=== PATIENT | female | born 1995 | race Caucasian/White ===

== ENCOUNTER 2018-09-23 17:49 | Outpatient (CLI) | payer MEDICAID ==
[~2018-09-23 17:49] MED LIST: PREN1TAB71 PO
--- NOTE | 2018-09-23 17:49 | NUR ---
PANCHITO CARMICHAEL presented to unit from HOME, accompanied by Significant Other, with c/o ELEVATED BP. PANCHITO CARMICHAEL weighed, gowned, voided, and to bed. EFHM and TOCO applied, VS taken. PANCHITO CARMICHAEL oriented to bed controls, call light, TV, heat, and A/C controls.
[2018-09-23 18:00] VITALS: BP 130/96
--- NOTE | 2018-09-23 18:10 | NUR ---
Dr. Spicer notified of patients arrival and complaints. New orders received.
[2018-09-23 18:20] VITALS: BP 124/72
[2018-09-23 18:30] VITALS: BP 130/96
[2018-09-23 18:33] VITALS: BP 131/75
[2018-09-23 18:48] VITALS: BP 126/73
[2018-09-23 19:03] VITALS: BP 132/78
--- NOTE | 2018-09-23 19:10 | NUR ---
Reactive FHR tracing with moderate variability noted. FHR baseline 145 bpm with accels up to 160-170's. No decels noted. Occasional uterine ctx noted with irritability present.
--- NOTE | 2018-09-23 19:11 | NUR ---
SVE unchanged from previous exam.
[2018-09-23] MEDS ORDERED: FLU QUADRIvalent (5+ YOA) 2018-2019 (AFLURIA) 0.5 ML IM ONE (19:15)
--- NOTE | 2018-09-23 19:16 | NUR ---
Dr. Spicer updated on patient's status. New orders received.
--- NOTE | 2018-09-23 19:20 | NUR ---
Report to Jt Coronado RN.
--- NOTE | 2018-09-23 19:24 | NUR ---
yumi and jorge marcus.
--- NOTE | 2018-09-23 19:32 | NUR ---
Discharge papers explained to pt. Pt denies questions. verbalizes understanding. papers signed, copy given. Pt left to dress.
--- NOTE | 2018-09-23 19:39 | NUR ---
Pt ambulated off unit accompanied by so. no s/s distress noted.
--- NOTE | 2018-09-24 13:32 | Physician Query-Final Dx ---
VILMA BENDER 09/24/18 1332: Clinic Account Progress/Dx Physician Query: Please give diagnosis Date of Service Sep 23, 2018 at 17:49 LAKHWINDER LACEY DO 09/26/18 1515: Clinic Account Progress/Dx DIAGNOSIS: Diagnosis Intrauterine at 38 weeks 2. Elevated Blood Pressure VILMA BENDER Sep 24, 2018 13:32 LAKHWINDER LACEY DO Sep 26, 2018 15:15
== END 2018-09-23 19:39 | disposition home or self-care (01) ==
LOC: WSo 17:49 → LDRP 17:49 → WSo 19:39
PROVIDERS: ATTEND Obstetrics & Gynecology
DX: R03.0 Elevated blood-pressure reading, without diagnosis of hypertension (principal); Z3A.38 38 weeks gestation of pregnancy
CPT/HCPCS: 99213

== ENCOUNTER 2018-09-30 04:47 | Inpatient (IN) | payer MEDICAID ==
[2018-09-30] VITALS (45 sets, daily range): BP systolic 107–145; BP diastolic 53–96
[~2018-09-30] VITALS: Ht 157.5 cm; Wt 101.2 kg
--- NOTE | 2018-09-30 04:50 | NUR ---
PANCHITO CARMICHAEL presented to unit via AMBULATORY from ED, accompanied by S/O , FOR INDUCTION. PANCHITO CARMICHAEL weighed, gowned, voided, and to bed. EFHM and TOCO applied, VS taken. PANCHITO CARMICHAEL oriented to bed controls, call light, TV, heat, and A/C controls. ASSESSMENTS TO FOLLOW PER JUSTICE BEE.
[2018-09-30] MEDS ORDERED: AMPICILLIN FOR IV USE 2,000 MG in WATER (STERILE) FOR INJECTION 14.8 ML IV SCH (05:14)
[2018-09-30] MEDS ORDERED: OXYTOCIN/NORMAL SALINE 500 ML IV SCH ×2 (05:14→14:37)
[2018-09-30] MEDS ORDERED: MINERAL OIL CONCENTRATE 99.9% 15 ML UDC TOP PRN (05:15)
[2018-09-30] MEDS: LACTATED RINGERS 1,000 ML IV SCH ×2 (05:30→16:22)
[2018-09-30 05:34] LABS: BASOPHILS % (AUTO) 0 % (0-10); EOSINOPHILS # (AUTO) 0.1 10^3/uL (0.0-0.3); EOSINOPHILS % (AUTO) 1 % (0-10); HEMATOCRIT 34 % (35-52); HEMOGLOBIN 10.9 G/DL (11.5-16.0); LYMPHOCYTES # (AUTO) 2.6 X 10^3 (1.0-4.0); LYMPHOCYTES % (AUTO) 26 % (12-44); MEAN CORPUSCULAR HEMOGLOBIN 25 PG (25-34); MEAN CORPUSCULAR HGB CONC 32 G/DL (32-36); MEAN CORPUSCULAR VOLUME 80 FL (80-99); MONOCYTES # (AUTO) 0.6 X 10^3 (0.0-1.0); MONOCYTES % (AUTO) 6 % (0-12); NEUTROPHILS # (AUTO) 6.4 X 10^3 (1.8-7.8); NEUTROPHILS % (AUTO) 66 % (42-75); PLATELET COUNT 111 10^3/uL (130-400); WHITE BLOOD COUNT 9.7 10^3/uL (4.3-11.0)
[2018-09-30] MEDS ORDERED: SUFENTA 0.6MCG/ML BUPIVA 0.125 100 ML ONE (05:56)
[2018-09-30] MEDS ORDERED: CATHETER FLUSH 10 ML SYR IV SCH (06:00)
[2018-09-30] MEDS ORDERED: fentaNYL INJECTION 100 MCG/2 ML AMP ONE (06:02)
[2018-09-30] MEDS ORDERED: BUPIVACAINE 0.25% 30 ML (SENSORCAINE) VIAL ONE (06:02)
[2018-09-30] MEDS ORDERED: LACTATED RINGERS 1,000 ML IV ONE ×2 (06:28)
[2018-09-30] MEDS ORDERED: EPIDURAL (SUFENTA 0.6MCG/ML BUPIVA 0.125%) 100 ML BAG EPI PRN (06:30)
[2018-09-30] MEDS ORDERED: NALOXONE 0.4 MG/ML 1 ML (NARCAN) VIAL IV PRN (06:30)
--- OUTSIDE RECORDS SUMMARY | 2018-09-30 07:24 | XMS REPORT | Continuity of Care Document ---
Author Author [facility] Organization [facility] Address Unknown Phone Unavailable Allergies Active Description Code Type Severity Reaction Onset Reported/Identified Relationship to Patient Clinical Status Yes No Known Drug Allergies [id number] Drug Allergy Unknown N/A 09/23/2018 Medications There is no data. Problems Date Dx Coded Attending Type Code Diagnosis Diagnosed By 12/23/2013 LILIANA PEPE, WILBERT Benitez Ot 648.93 OTH CURR COND-ANTEPARTUM 12/23/2013 LILIANA PEPE, WILBERT Benitez Ot 786.50 CHEST PAIN NOS 09/23/2018 SEALS DO, LAKHWINDER E Ot R03.0 ELEVATED BLOOD-PRESSURE READING, W/O MISAEL 09/23/2018 SEALS DO, LAKHWINDER E Ot Z3A.38 38 WEEKS GESTATION OF 09/29/2018 SEALS DO, LAKHWINDER E Ot R03.0 ELEVATED BLOOD-PRESSURE READING, W/O MISAEL 09/29/2018 SEALS DO, LAKHWINDER E Ot Z3A.38 38 WEEKS GESTATION OF Procedures There is no data. Results Test Result Range Complete blood count (CBC) with automated white blood cell (WBC) differential - 09/30/18 05:20 Blood leukocytes automated count (number/volume) 9.7 10*3/uL 4.3-11.0 Blood erythrocytes automated count (number/volume) 4.30 10*6/uL 4.35-5.85 Venous blood hemoglobin measurement (mass/volume) 10.9 g/dL 11.5-16.0 Blood hematocrit (volume fraction) 34 % 35-52 Automated erythrocyte mean corpuscular volume 80 [foz_us] 80-99 Automated erythrocyte mean corpuscular hemoglobin (mass per erythrocyte) 25 pg 25-34 Automated erythrocyte mean corpuscular hemoglobin concentration measurement ( mass/volume) 32 g/dL 32-36 Automated erythrocyte distribution width ratio 15.0 % 10.0-14.5 Automated blood platelet count (count/volume) 111 10*3/uL 130-400 Automated blood platelet mean volume measurement TNP 7.4 -10.4 Automated blood neutrophils/100 leukocytes 66 % 42-75 Automated blood lymphocytes/100 leukocytes 26 % 12-44 Blood monocytes/100 leukocytes 6 % 0-12 Automated blood eosinophils/100 leukocytes 1 % 0-10 Automated blood basophils/100 leukocytes 0 % 0-10 Blood neutrophils automated count (number/volume) 6.4 10*3 1.8-7.8 Blood lymphocytes automated count (number/volume) 2.6 10*3 1.0-4.0 Blood monocytes automated count (number/volume) 0.6 10*3 0.0-1.0 Automated eosinophil count 0.1 10*3/uL 0.0-0.3 Automated blood basophil count (count/volume) 0.0 10*3/uL 0.0-0.1 Blood type T Indirect antibody screen panel - 09/30/18 05:20 ABO+Rh group AP NRG Transfusion band number [id number] NRG Blood group antibody screen NEGATIVE NRG Encounters ACCT No. Visit Date/Time Discharge Status Pt. Type Provider Facility Loc./Unit Complaint [id number] 09/23/2018 17:49:00 09/23/2018 19:39:00 DIS Outpatient LAKHWINDER LACEY DO [facility] WSo ELEVATED BP [id number] 12/23/2013 15:27:00 12/23/2013 17:25:00 DIS Outpatient LILIANA PEPE[facility]ST PAIN [id number] 09/30/2018 04:47:00 ACT Inpatient LAKHWINDER LACEY DO [facility] LDRP INDUCTION
[2018-09-30] MEDS ORDERED: FLU QUADRIvalent (5+ YOA) 2018-2019 (AFLURIA) 0.5 ML IM ONE (07:30)
[2018-09-30] MEDS: FAMOTIDINE 20 MG (PEPCID) TABLET PO PRN ×2 (08:05→08:59)
[2018-09-30] MEDS: ONDANSETRON 4 MG/2 ML (SDV) Z0FRAN IV PRN ×2 (08:09→11:53)
[2018-09-30] MEDS ORDERED: AMPICILLIN FOR IV USE 1,000 MG in WATER (STERILE) FOR INJECTION 7.4 ML IV SCH (09:15)
[2018-09-30] MEDS ORDERED: LIDOCAINE 1% INJ 20 ML 20 ML VIAL ONE (11:35)
--- NOTE | 2018-09-30 13:39 | NUR ---
Spontaneous vaginal delivery of placenta with cord. pitocin increased to 999ml/hr as ordered fundal massage by this rn. 1349 vital signs obtained. ffu/0 with lt rubra noted, no clots expressed. epidural infusion stopped and epidural out with tip intact. pt assisted out of foot pedals and to sf position. plan of care reviewed with pt. 1404 vital signs stable ffu/0 with lt rubra noted, no clots expressed.
--- NOTE | 2018-09-30 13:48 | History & Physical-OB/GYN ---
History of Present Illness History of Present Illness Reason for visit/HPI Pitocin Induction of Labor at 39 weeks Date of Admission Sep 30, 2018 at 04:47 Date Seen by a Provider: Sep 30, 2018 Time Seen by a Provider: 07:40 I consulted on this patient on 09/30/18 13:43 Attending Physician David Spicer DO Admitting Physician No,Local Physician Consult Allergies and Home Medications Allergies Coded Allergies: No Known Drug Allergies (Unverified , 09/23/18) Home Medications Vit/Fe Fumarate/Fa 1 Each Tablet, 1 EACH PO DAILY, (Reported) Patient Home Medication List Home Medication List Reviewed: Yes Past Heqntkx-Schhvx-Hfxrrz Hx Patient Social History Alcohol Use: Denies Use Recreational Drug Use: No Physical Abuse Screen: No Sexual Abuse: No Recent Hopitalizations: No Immunizations Up To Date Pediatric: Yes Seasonal Allergies Seasonal Allergies: No Respiratory No Cardiovascular No Neurological No Reproductive System Expected Date of Delivery: Oct 07, 2018 Genitourinary No Gastrointestinal No Musculoskeletal No Endocrine History of Endocrine Disorders: Yes HEENT History of HEENT Disorders: No Cancer No Psychosocial History of Psychiatric Problem: No Integumentary History of Skin or Integumenta: No Blood Transfusions History of Blood Disorders: No Adverse Reaction to a Blood Tr: No Review of Systems Constitutional: no symptoms reported Physical Exam Physical Exam Vital Signs Vital Signs Date Time Temp Pulse Resp B/P (MAP) Pulse Ox O2 Delivery O2 Flow Rate FiO2 09/30/18 13:00 09/30/18 12:55 98 18 123/60 (81) 09/30/18 12:45 09/30/18 12:40 108 18 122/72 (89) 09/30/18 12:30 09/30/18 12:25 120 18 117/63 (81) 09/30/18 12:15 09/30/18 12:10 114 18 120/66 (84) 09/30/18 12:00 09/30/18 11:55 93 18 126/69 (88) 09/30/18 11:45 09/30/18 11:40 103 18 113/56 (75) 09/30/18 11:30 09/30/18 11:25 92 18 124/83 (97) 09/30/18 11:20 97.9 09/30/18 11:15 09/30/18 11:10 84 18 109/59 (76) 09/30/18 11:00 09/30/18 10:55 81 18 107/64 (78) 09/30/18 10:45 09/30/18 10:40 83 18 109/71 (84) 09/30/18 10:30 09/30/18 10:25 76 18 122/64 (83) 09/30/18 10:15 09/30/18 10:10 83 18 136/63 (87) 09/30/18 10:00 09/30/18 09:55 93 18 130/79 (96) 09/30/18 09:45 09/30/18 09:40 93 18 130/79 (96) 09/30/18 09:30 09/30/18 09:25 97.8 98 18 119/74 (89) 09/30/18 09:15 09/30/18 09:05 102 18 114/66 (82) 09/30/18 09:00 09/30/18 08:55 96 18 112/71 (85) 09/30/18 08:45 09/30/18 08:40 84 18 107/53 (71) 99 09/30/18 08:30 114 18 100 09/30/18 08:25 88 18 115/63 (80) 99 09/30/18 08:15 114 18 100 09/30/18 08:00 90 18 97 09/30/18 07:55 100 18 126/89 (101) 99 09/30/18 07:45 88 18 132/79 (96) 99 09/30/18 07:35 93 18 135/96 (109) 98 09/30/18 07:30 97.6 91 18 117/78 (91) 99 09/30/18 07:25 94 18 125/78 (94) 98 09/30/18 07:20 90 18 124/71 (88) 99 09/30/18 07:15 125 18 139/78 (98) 100 09/30/18 07:05 112 18 127/74 (91) 98 09/30/18 06:58 109 18 124/69 (87) 100 09/30/18 06:52 105 18 130/75 (93) 98 09/30/18 06:48 120 18 110/70 (83) 99 09/30/18 06:45 109 18 124/69 (87) 100 09/30/18 06:38 114 18 98 09/30/18 06:34 114 18 129/75 (93) 99 09/30/18 06:30 117 18 121/75 (90) 100 09/30/18 06:15 115 18 135/82 (99) 100 09/30/18 06:00 98.2 110 18 140/82 (101) 97 Capillary Refill : Labs Laboratory Tests 09/30/18 05:20: White Blood Count 9.7, Red Blood Count 4.30L, Hemoglobin 10.9L, Hematocrit 34L, Mean Corpuscular Volume 80, Mean Corpuscular Hemoglobin 25, Mean Corpuscular Hemoglobin Concent 32, Red Cell Distribution Width 15.0H, Platelet Count 111L, Mean Platelet Volume , Neutrophils (%) (Auto) 66, Lymphocytes (%) (Auto) 26, Monocytes (%) (Auto) 6, Eosinophils (%) (Auto) 1, Basophils (%) (Auto) 0, Neutrophils # (Auto) 6.4, Lymphocytes # (Auto) 2.6, Monocytes # (Auto) 0.6, Eosinophils # (Auto) 0.1, Basophils # (Auto) 0.0 Cervix OS: open ( 3 cm) Assessment/Plan Assessment and Plan Assessment: Intrauterine at 39 weeks Plan: Pitocin Induction of Labor. AROM. Epidural. I expect a vaginal delivery Admission Diagnosis Intrauterine Admission Status: Inpatient Order (span 2 midnights) Reason for Inpatient Admission: with forthcoming delivery Clinical Quality Measures DVT/VTE Risk/Contraindication: Risk Factor Score Per Nursin RFS Level Per Nursing on Admit: 1=Low/No VTE PPX DAVID SPICER DO Sep 30, 2018 13:48
--- NOTE | 2018-09-30 13:51 | OB Labor & Delivery Record ---
L&D History Date of Service Date of Service: Sep 30, 2018 History Expected Date of Delivery: Oct 07, 2018 Gestational Age in Weeks: 39 Hx : 2 Hx Para: 1 L&D Stage1 Monitors and Tracing Monitor Mode: Internal Heart Rate: 135 Station: -1 Vital Signs VS - Last 72 Hours, by Label 09/30/18 09/30/18 09/30/18 09/30/18 06:00 06:15 06:30 06:34 Temp 98.2 Pulse 110 115 117 114 Resp 18 18 18 18 B/P (MAP) 140/82 (101) 135/82 (99) 121/75 (90) 129/75 (93) Pulse Ox 97 100 100 99 09/30/18 09/30/18 09/30/18 09/30/18 06:38 06:45 06:48 06:52 Pulse 114 109 120 105 Resp 18 18 18 18 B/P (MAP) 124/69 (87) 110/70 (83) 130/75 (93) Pulse Ox 98 100 99 98 09/30/18 09/30/18 09/30/18 09/30/18 06:58 07:05 07:15 07:20 Pulse 109 112 125 90 Resp 18 18 18 18 B/P (MAP) 124/69 (87) 127/74 (91) 139/78 (98) 124/71 (88) Pulse Ox 100 98 100 99 09/30/18 09/30/18 09/30/18 09/30/18 07:25 07:30 07:35 07:45 Temp 97.6 Pulse 94 91 93 88 Resp 18 18 18 18 B/P (MAP) 125/78 (94) 117/78 (91) 135/96 (109) 132/79 (96) Pulse Ox 98 99 98 99 09/30/18 09/30/18 09/30/18 09/30/18 07:55 08:00 08:15 08:25 Pulse 100 90 114 88 Resp 18 18 18 18 B/P (MAP) 126/89 (101) 115/63 (80) Pulse Ox 99 97 100 99 09/30/18 09/30/18 09/30/18 09/30/18 08:30 08:40 08:45 08:55 Pulse 114 84 96 Resp 18 18 18 B/P (MAP) 107/53 (71) 112/71 (85) Pulse Ox 100 99 09/30/18 09/30/18 09/30/18 09/30/18 09:00 09:05 09:15 09:25 Temp 97.8 Pulse 102 98 Resp 18 18 B/P (MAP) 114/66 (82) 119/74 (89) 09/30/18 09/30/18 09/30/18 09/30/18 09:30 09:40 09:45 09:55 Pulse 93 93 Resp 18 18 B/P (MAP) 130/79 (96) 130/79 (96) 09/30/18 09/30/18 09/30/18 09/30/18 10:00 10:10 10:15 10:25 Pulse 83 76 Resp 18 18 B/P (MAP) 136/63 (87) 122/64 (83) 09/30/18 09/30/18 09/30/18 09/30/18 10:30 10:40 10:45 10:55 Pulse 83 81 Resp 18 18 B/P (MAP) 109/71 (84) 107/64 (78) 09/30/18 09/30/18 09/30/18 09/30/18 11:00 11:10 11:15 11:20 Temp 97.9 Pulse 84 Resp 18 B/P (MAP) 109/59 (76) 09/30/18 09/30/18 09/30/18 09/30/18 11:25 11:30 11:40 11:45 Pulse 92 103 Resp 18 18 B/P (MAP) 124/83 (97) 113/56 (75) 09/30/18 09/30/18 09/30/18 09/30/18 11:55 12:00 12:10 12:15 Pulse 93 114 Resp 18 18 B/P (MAP) 126/69 (88) 120/66 (84) 09/30/18 09/30/18 09/30/18 09/30/18 12:25 12:30 12:40 12:45 Pulse 120 108 Resp 18 18 B/P (MAP) 117/63 (81) 122/72 (89) 09/30/18 09/30/18 12:55 13:00 Pulse 98 Resp 18 B/P (MAP) 123/60 (81) Rupture of Membranes Amniotic Membrane Rupture Time: 712 Induction/Anesthesia Epidural Cath Placement - Time: 06 L&D Stage2 Monitors and Tracing Monitor Mode: Internal Heart Rate: 135 Position: Right Occiput Anterior Presentation: Vertex Cord Descript/Complications Cord Vessel Description: 3 Vessels Delivery Type Infant Delivery Method: Spontaneous Vaginal Episiotomy/Perineal Laceration Laceraction(s)/Extensions: No L&D Stage3 Pictocin Pitocin Administration mu/min: 20 Pitocin ml/hr: 20 Pitocin Administration Comment: 1008 pitocin increased Delivery Summary Summary Estimated blood loss (mL): 200 ml Attending at delivery: Dr. David Spicer Condition of Delivery Examined: Uterus Explored Post Hemorrhage: DAVID Mckeon DO Sep 30, 2018 13:50
--- NOTE | 2018-09-30 14:19 | NUR ---
ffu/0 with light rubra noted, no clots expressed. vss. 1434 ffu/0 with lt rubra noted, small 2cm clot expressed. vss.
[2018-09-30] MEDS ORDERED: WITCH HAZEL(TUCKS) 40 EA JAR TOP PRN (14:45)
[2018-09-30] MEDS ORDERED: BENZOCAINE/MENTHOL (DERMOPLAST) 56 ML CAN TP PRN (14:45)
[2018-09-30] MEDS ORDERED: MEASLES,MUMPS,RUBELLA 1 EA INJ SQ ONE (14:45)
[2018-09-30] MEDS ORDERED: TETANUS,DIPTH,PERTUSS P/F (BOOSTRIX) 0.5 ML VIAL IM ONE (14:45)
--- NOTE | 2018-09-30 15:03 | NUR ---
pt sitting up eating dinner.
[2018-09-30] MEDS: IBUPROFEN 600 MG (MOTRIN) TAB PO SCH ×2 (15:08→21:02)
--- NOTE | 2018-09-30 15:30 | NUR ---
ffu/0 with lt-mod rubra noted, no clots expressed. pericare and pad changed. Underwear on. Gown on.
--- NOTE | 2018-09-30 15:40 | NUR ---
Pt assisted to wheelchair and transferred to room 309. Oriented to room, call light and surroundings. Info packet discussed. family at bedside. fresh ice water to bedside table.
--- NOTE | 2018-09-30 17:31 | NUR ---
Assisted up to bathroom. pt reports "dizzy." ambulates with steady gait to toilet. lt-mod rubra noted on pad, +void, pericare explained and done. new pad and underwear on. Assisted back to bed and ambulates with steady gait. pt to breastfeed infant. handed to pt from crib. pt denies further needs.
--- NOTE | 2018-09-30 20:15 | NUR ---
Water supplied upon request further needs denied.
--- NOTE | 2018-09-30 21:00 | NUR ---
mob upset rn not available for bath, rn voiced triage and pt care priority and productivity, mob voiced understanding, bath to be done in am when mob awake to be present. rn voiced understanding.
[2018-09-30] MEDS: DOCUSATE SODIUM 100 MG (COLACE) CAP PO SCH (21:02)
--- NOTE | 2018-09-30 23:05 | NUR ---
meds admin see emar. Pt denies further needs, will cont to monitor.
[2018-09-30] MEDS: oxyCODONE/APAP 5/325MG (PERCOCET 5) TABLET PO PRN (23:14)
--- NOTE | 2018-10-01 00:25 | NUR ---
ice diaper supplied upon request r/t vag soreness. Denies further needs at this time.
[2018-10-01 03:21] VITALS: BP 112/74
[2018-10-01] MEDS: IBUPROFEN 600 MG (MOTRIN) TAB PO SCH ×2 (03:21→10:10)
--- NOTE | 2018-10-01 03:21 | NUR ---
pt and s/o sleeping in bed with , moved to crib per rn, sleep protocols reviewed, understanding voiced per mob. IV removed, vss see int.
[2018-10-01 06:01] LABS: BASOPHILS % (AUTO) 0 % (0-10); EOSINOPHILS # (AUTO) 0.2 10^3/uL (0.0-0.3); EOSINOPHILS % (AUTO) 2 % (0-10); HEMATOCRIT 31 % (35-52); HEMOGLOBIN 9.8 G/DL (11.5-16.0); LYMPHOCYTES # (AUTO) 2.4 X 10^3 (1.0-4.0); LYMPHOCYTES % (AUTO) 27 % (12-44); MEAN CORPUSCULAR HEMOGLOBIN 25 PG (25-34); MEAN CORPUSCULAR HGB CONC 32 G/DL (32-36); MEAN CORPUSCULAR VOLUME 80 FL (80-99); MONOCYTES # (AUTO) 0.6 X 10^3 (0.0-1.0); MONOCYTES % (AUTO) 7 % (0-12); NEUTROPHILS # (AUTO) 5.8 X 10^3 (1.8-7.8); NEUTROPHILS % (AUTO) 64 % (42-75); PLATELET COUNT 94 10^3/uL (130-400); RED CELL DISTRIBUTION WIDTH 15.2 % (10.0-14.5); WHITE BLOOD COUNT 9.1 10^3/uL (4.3-11.0)
--- NOTE | 2018-10-01 07:28 | Discharge Inst-Women's Service ---
Discharge Inst-Women's Serv Depart Medication/Instructions New, Converted or Re-Newed RX: RX Given to Pt/Family Instructions Pelvic rest x 6 weeks. No heavy lifting, less than 20 lbs. No strenuous activities. Tub soaks 2-3 x daily. Return to office in 6 weeks Final Diagnosis Intrauterine at 39 weeks--delivered Consults/Follow Up Additional Follow Up: Yes ( check in 6 weeks) Activity Activity: Activity as Tolerated Driving Instructions: No Driving for 1 Week NO SMOKING: NO SMOKING Nothing Inside Vagina: No Douching, No [place], No Tampons Diet Discharge Diet: No Restrictions Symptoms to Report to : Bleeding Excessive, Pain Increased, Fever Over 101 Degrees F, Vaginal Bleeding Increase Skin/Wound Care Bathing Instructions: LAKHWINDER Miranda DO Oct 01, 2018 07:28
[2018-10-01] MEDS ORDERED: IBUP-844 PO (07:32)
[2018-10-01] MEDS ORDERED: DOCU100C37 PO (07:32)
[2018-10-01] MEDS ORDERED: OXYC1TAB87 PO (07:32)
--- NOTE | 2018-10-01 07:39 | Discharge Summary ---
Discharge Summary Intrauterine at 39 weeks--delivered Ms. Hernandez was admitted for Pitocin Induction of Labor. Her membranes were artificially ruptured. She was given an Epidural for antepartum anesthesia. She progressed to complete and delivered a healthy viable female infant without complications. Her vital signs remained stable throughout her hospitalization. On day #1, she was discharged to home with instructions, prescriptions and a follow up appointment. Clinical Quality Measures Admission Status Admission Dx Intrauterine DVT/VTE Risk/Contraindication: Risk Factor Score Per Nursin RFS Level Per Nursing on Admit: 1=Low/No VTE LAKHWINDER GOMEZ DO Oct 01, 2018 07:39
[2018-10-01] MEDS: DOCUSATE SODIUM 100 MG (COLACE) CAP PO SCH (08:13)
[2018-10-01] MEDS: FAMOTIDINE 20 MG (PEPCID) TABLET PO PRN (08:13)
[2018-10-01] MEDS: oxyCODONE/APAP 5/325MG (PERCOCET 5) TABLET PO PRN ×2 (08:14→13:33)
[2018-10-01 08:18] VITALS: BP 122/78
--- NOTE | 2018-10-01 09:09 | NUR ---
Patient refused TDAP immunization. Last given 12/02/2010. Pt also refused Flu vaccine.
--- NOTE | 2018-10-01 10:18 | Anesthesia-Regional Post-Op ---
Regional Patient Condition Mental Status: Alert, Oriented x3 Circulation: Same as Pre-Op Headache: Absent Sensation: Full Recovery Motor Block: Absent Post Op Complications Complications None Follow Up Care/Instructions Patient Instructions None needed. Anesthesia/Patient Condition Patient is doing well, no complaints, stable vital signs, no apparent adverse anesthesia problems. No complications reported per nursing. FABIAN LARSEN CRNA Oct 01, 2018 10:18
--- NOTE | 2018-10-01 11:15 | NUR ---
Discharge instructions and home care instructions given to pt verbally along with handouts. Pt verbalizes understanding. Pt verified by signing instruction signature page.
[2018-10-01 12:31] VITALS: BP 123/80
--- NOTE | 2018-10-01 15:40 | NUR ---
Discharge pt. Pt ambulated to personal vehicle accompanied via this nurse and . Babe in child safety car seat and clicked in. All personal items with patient. Pt has Rx and follow-up appointments with Dr Spicer in 6 weeks. No s/s of distress. No concerns voiced by pt at this time.
== END 2018-10-01 15:40 | disposition home or self-care (01) | DRG 807 ==
LOC: LDRP 04:47
PROVIDERS: ADMIT Obstetrics & Gynecology; ATTEND Obstetrics & Gynecology
PROC: 10E0XZZ Delivery of Products of Conception, External Approach (ICD-10-PCS; principal; 2018-09-30)
PROC: 3E033VJ Introduction of Other Hormone into Peripheral Vein, Percutaneous Approach (ICD-10-PCS; 2018-09-30)
DX: O99.283 Endocrine, nutritional and metabolic diseases complicating pregnancy, third trimester (principal); E03.9 Hypothyroidism, unspecified; O99.613 Diseases of the digestive system complicating pregnancy, third trimester; K21.9 Gastro-esophageal reflux disease without esophagitis; Z3A.39 39 weeks gestation of pregnancy; Z37.0 Single live birth
CPT/HCPCS: 36415; 85025; 86850; 86900; 86901

== ENCOUNTER 2018-11-17 05:30 | Emergency (ER) | payer MEDICAID ==
[~2018-11-17] VITALS: Ht 157.5 cm; Wt 90.3 kg
[~2018-11-17 05:30] MED LIST changes: +DOCU100C37 PO; +IBUP-844 PO; +OXYC1TAB87 PO
--- OUTSIDE RECORDS SUMMARY | 2018-11-17 05:37 | XMS REPORT ---
Author Author LAKHWINDER LACEY 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 Name Role Phone EDEPTHI LAKHWINDER Unavailable PROBLEMS Unknown Problems ALLERGIES Substance Reaction Event Type Date Status Benadryl Facial Swelling Drug Allergy Sep, Active ENCOUNTERS Encounter Location Date Diagnosis [address] [address] Oct, [address] [address] Sep, Morbid obesity E66.01 ; Encounter for supervision of other normal in third trimester Z34.83 and Other specified related conditions, third trimester O26.[address] [address] Aug, [address] [address] Aug, Other specified related conditions, third trimester O26.[address] [address] Aug, Other specified related conditions, third trimester O26.893 ; Pelvic and perineal pain R10.2 ; Other specified bacterial agents as the cause of diseases classified elsewhere B96.89 ; Acute vaginitis N76.0 and BMI 40.0-44.9, adult Z68.[address] [address] Jul, [facility] [address] [facility] [id number] [address] Apr, [facility] [address] [facility] [id number], [place] [address] Apr, IMMUNIZATIONS No Known Immunizations SOCIAL HISTORY Never Assessed REASON FOR VISIT OB f/u PLAN OF CARE Activity Details Follow Up 1 Week Reason:Return Obstetrical Visit VITAL SIGNS Height 5'2 in 2018-09-23 Weight 219 lbs 2018-09-23 Temperature 98.2 degrees Fahrenheit 2018-09-23 Heart Rate 120 bpm 2018-09-23 BMI 42.77 kg/m2 2018-09-23 Blood pressure systolic 146 mmHg 2018-09-23 Blood pressure diastolic 101 mmHg 2018-09-23 MEDICATIONS Medication Instructions Dosage Frequency Start Date End Date Duration Status Tylenol with Codeine #3 300-30 MG Orally every 6 hrs 1 tablet as needed 6h Aug, 7 days Unknown Flagyl 500 MG Orally 2 times a day 1 tablet 12h 12 Aug, 2018 7 days Unknown Zofran 4 MG Orally Twice a day 2 tablets 12h 30 day(s) Unknown Cyclobenzaprine HCl 10 MG Orally Three times a day 1 tablet as needed 8h Aug, 10 days Unknown HydrOXYzine HCl 25 MG/ML Intramuscular every 6 hrs 2 ml as needed 6h 30 day(s) Unknown Yhuyjoasav-NTKR-Vlgcimpn 50-325-40 MG Orally every 4 hrs 1 capsule as needed 4h Unknown RESULTS No Results PROCEDURES Procedure Date Ordered Result Body Site URINE-NO MICRO September 23, 2018 [facility] September 23, 2018 INSTRUCTIONS MEDICATIONS ADMINISTERED No Known Medications MEDICAL (GENERAL) HISTORY Type Description Date Medical History Hypothyroidism Medical History obesity
--- OUTSIDE RECORDS SUMMARY | 2018-11-17 05:37 | XMS REPORT | Continuity of Care Document ---
Author Organization Unknown Address Unknown Allergies Active Description Code Type Severity Reaction Onset Reported/Identified Relationship to Patient Clinical Status Yes No Known Drug Allergies [id number] Drug Allergy Unknown N/A 09/23/2018 Medications There is no data. Problems Date Dx Coded Attending Type Code Diagnosis Diagnosed By 12/23/2013 LILIANA PEPE, WILBERT Benitez Ot 648.93 OTH CURR COND-ANTEPARTUM 12/23/2013 WILBERT FORD MD Ot 786.50 CHEST PAIN NOS 09/23/2018 SEALS DO, LAKHWINDER E Ot R03.0 ELEVATED BLOOD-PRESSURE READING, W/O MISAEL 09/23/2018 SEALS DO, LAKHWINDER E Ot Z3A.38 38 WEEKS GESTATION OF 09/29/2018 SEALS DO, LAKHWINDER E Ot R03.0 ELEVATED BLOOD-PRESSURE READING, W/O MISAEL 09/29/2018 SEALS DO, LAKHWINDER E Ot Z3A.38 38 WEEKS GESTATION OF 10/01/2018 SEALS DO, LAKHWINDER E Ot E03.9 HYPOTHYROIDISM, UNSPECIFIED 10/01/2018 SEALS DO, LAKHWINDER E Ot K21.9 GASTRO-ESOPHAGEAL REFLUX DISEASE WITHOUT 10/01/2018 SEALS DO, LAKHWINDER E Ot O99.283 ENDO, NUTRITIONAL AND METAB DISEASES COM 10/01/2018 SEALS DO, LAKHWINDER E Ot O99.613 DISEASES OF THE DGSTV SYS COMP 10/01/2018 SEALS DO, LAKHWINDER E Ot Z37.0 SINGLE LIVE 10/01/2018 SEALS DO, LAKHWINDER E Ot Z3A.39 39 WEEKS GESTATION OF Procedures Code Description Performed By Performed On [id number] DELIVERY OF PRODUCTS OF CONCEPTION, EXTE 09/30/2018 [id number] INTRODUCTION OF OTH HORMONE INTO PERIPH 09/30/2018 Results Test Result Range Complete blood count [...] panel - 09/30/18 05:20 ABO+Rh group AP NR Transfusion band number [id number] [facility] Blood group antibody screen NEGATIVE [facility] Complete blood count (CBC) with automated white blood cell (WBC) differential - 10/01/18 05:30 Blood leukocytes automated count (number/volume) 9.1 10*3/uL 4.3-11.0 Blood erythrocytes automated count (number/volume) 3.85 10*6/uL 4.35-5.85 Venous blood hemoglobin measurement (mass/volume) 9.8 g/dL 11.5-16.0 Blood hematocrit (volume fraction) 31 % 35-52 Automated erythrocyte mean corpuscular volume 80 [foz_us] 80-99 Automated erythrocyte mean corpuscular hemoglobin (mass per erythrocyte) 25 pg 25-34 Automated erythrocyte mean corpuscular hemoglobin concentration measurement ( mass/volume) 32 g/dL 32-36 Automated erythrocyte distribution width ratio 15.2 % 10.0-14.5 Automated blood platelet count (count/volume) 94 10*3/uL 130-400 Automated blood platelet mean volume measurement TNP 7.4 -10.4 Automated blood neutrophils/100 leukocytes 64 % 42-75 Automated blood lymphocytes/100 leukocytes 27 % 12-44 Blood monocytes/100 leukocytes 7 % 0-12 Automated blood eosinophils/100 leukocytes 2 % 0-10 Automated blood basophils/100 leukocytes 0 % 0-10 Blood neutrophils automated count (number/volume) 5.8 10*3 1.8-7.8 Blood lymphocytes automated count (number/volume) 2.4 10*3 1.0-4.0 Blood monocytes automated count (number/volume) 0.6 10*3 0.0-1.0 Automated eosinophil count 0.2 10*3/uL 0.0-0.3 Automated blood basophil count (count/volume) 0.0 10*3/uL 0.0-0.1 Encounters ACCT No. Visit Date/Time Discharge Status Pt. Type Provider Facility Loc./Unit Complaint [id number] 09/30/2018 04:47:00 10/01/2018 15:40:00 DIS Outpatient LAKHWINDER LACEY DO [facility] LDRP INDUCTION [id number] 09/23/2018 17:49:00 09/23/2018 19:39:00 DIS Outpatient LAKHWINDER LACEY DO [facility] WSo ELEVATED BP [id number] 12/23/2013 15:27:00 12/23/2013 17:25:00 DIS Outpatient LILIANA PEPE, WILBERT Benitez Via [facility] WSo ABD PAIN; CHEST PAIN
[2018-11-17] MEDS ORDERED: LORazepam INJ 2 MG/ML (ATIVAN) VIAL IM STA (06:09)
--- NOTE | 2018-11-17 06:22 | ED Psychosocial ---
General Chief Complaint: Psych/Social Disorder Stated Complaint: PANIC ATTACK Nursing Triage Note: pt [address] Sipcer saturday with no complaints, pt states 2 days ago she started having panic attacks, wants them to stop, took tylenol pm 1 hr ago then tried to emesis because she is breast feeding and doesnt want medication to go to the baby. pt states she is not sleeping well. Source: patient, RN notes reviewed Exam Limitations: no limitations History of Present Illness Date Seen by Provider: Nov 17, 2018 Time Seen by Provider: 06:00 Initial Comments Patient presents c/c /o worsening anxiety since Saturday. [address] Spicer on Saturday and was doing fine @ that time. States she isn't sleeping well. Is breast feeding. Took a Tylenol PM approximately a hour [employer], but made herself throw it up secondary to not wanting the baby to get it thru her breast milk. States she just wants it to stop. Denies anything similar to this c/ her first . Timing/Duration: getting worse, other (since Saturday) Severity: severe Associated Symptoms: anxiety, insomnia Allergies and Home Medications Allergies Coded Allergies: No Known Drug Allergies (Unverified , 09/23/18) Home Medications Docusate Sodium 100 Mg Capsule, 100 MG PO BID Prescribed by: LAKHWINDER SPICER on 10/01/18 0732 Ibuprofen 600 Mg Tablet, 800 MG PO Q6H PRN for PAIN-MILD Prescribed by: LAKHWINDER SPICER on 10/01/18 0732 Oxycodone HCl/Acetaminophen 1 Each Tablet, 1 TAB PO Q6H PRN for PAIN-MODERATE Prescribed by: LAKHWINDER SPICER on 10/01/18 0732 Vit/Fe Fumarate/Fa 1 Each Tablet, 1 EACH PO DAILY, (Reported) Patient Home Medication List Home Medication List Reviewed: Yes Review of Systems Constitutional: see HPI Psychiatric/Neurological: See HPI, Anxiety (panic) All Other Systems Reviewed Negative Unless Noted: Yes (Negative excepted noted.) Past Pjmdbhk-Gwvjmb-Ftfgce Hx Patient Social History Alcohol Use: Denies Use Recreational Drug Use: No Smoking Status: Never a Smoker Recent Foreign Travel: No Contact w/Someone Who Travel: No Recent Infectious Disease Expo: No Recent Hopitalizations: No Physical Abuse: No Sexual Abuse: No Mistreated: No Fear: No Immunizations Up To Date PED Vaccines UTD: Yes Seasonal Allergies Seasonal Allergies: No Past Medical History Respiratory: No Cardiac: No Neurological: No Genitourinary: No Gastrointestinal: No Musculoskeletal: No Endocrine: Yes HEENT: No Cancer: No Psychosocial: No Integumentary: No Blood Disorders: No Adverse Reaction/Blood Tranf: No Physical Exam Vital Signs - First Documented 11/17/18 05:46 Temp 97.8 Pulse 92 Resp 18 B/P (MAP) 162/89 (113) Pulse Ox 98 O2 Delivery Simple Mask Capillary Refill : Less Than 3 Seconds Height, Weight, BMI Height: 5'2.00" Weight: 199lbs. 0.0oz. 90.813199ls; 40.8 BMI Method:Stated General Appearance: WD/WN, moderate distress Respiratory: no respiratory distress Cardiovascular: regular rate, rhythm Neurologic/Psychiatric: no motor/sensory deficits, alert, oriented x 3, other ( extremely anxious; exhibiting signs of a panic attack) Appearance/Memory: neat Behavior/Eye Contact: cooperative, increased rate of speech (slightly) Thoughts/Hallucinations: no apparent hallucination Skin: warm/dry Progress/Results/Core Measures Results/Orders My Orders Orders - KENDRICK LATIF DO Lorazepam Injection (Ativan Injection) (11/17/18 06:09) Vital Signs/I&O 11/17/18 11/17/18 05:46 06:27 Temp 97.8 Pulse 92 98 Resp 18 16 B/P (MAP) 162/89 (113) 142/86 (104) Pulse Ox 98 98 O2 Delivery Simple Mask Blood Pressure Mean: 113 Progress Progress Note : Progress Note Will give the patient 1 mg of Ativan IM. She is aware she will need to pump and dump today. Needs to check c/ Dr. Spicer this AM for further recommendations regarding her symptoms. Departure Impression Primary Impression: Panic anxiety syndrome Disposition: 01 HOME, SELF-CARE Condition: Stable Departure-Patient Inst. Decision time for Depature: 06:22 Referrals: LAKHWINDER SPICER DO (PCP/Family) Primary Care Physician Patient Instructions: Panic Disorder (DC), Anxiety, Adult (DC) Add. Discharge Instructions: All discharge instructions reviewed with patient and/or family. Voiced understanding. CALL DR. SPICER THIS AM, 11/17, FOR HIS RECOMMENDATIONS REGARDING FUTURE TREATMENT. KENDRICK LATIF DO Nov 17, 2018 06:22
[2018-11-17 06:27] VITALS: BP 142/86
== END 2018-11-17 06:27 | disposition home or self-care (01) ==
LOC: EDUNIT# 05:30 → ER FS 05:33
DX: F41.0 Panic disorder [episodic paroxysmal anxiety] (principal)
CPT/HCPCS: 96372; 99284

== ENCOUNTER 2019-07-26 05:27 | Emergency (ER) | payer BC, MEDICAID ==
[~2019-07-26] VITALS: Ht 157 cm; Wt 95.7 kg
[2019-07-26] MEDS ORDERED: AMOX500C2 PO (05:50)
[2019-07-26] MEDS ORDERED: HYDR-3820 PO (05:50)
[2019-07-26] MEDS ORDERED: AMOXICILLIN 500 MG (POLYMOX) CAP PO STA (05:51)
--- NOTE | 2019-07-26 05:51 | ED EENT ---
History of Present Illness General Chief Complaint: Dental Problems/Pain Stated Complaint: DENTAL PAIN Nursing Triage Note: PT COMPLAINING OF LOWER RIGHT DENTAL PAIN SINCE 1900 LAST NIGHT Source: patient Exam Limitations: no limitations History of Present Illness Date Seen by Provider: Jul 26, 2019 Time Seen by Provider: 05:47 Initial Comments Patient broke her right lower second molar 2 days ago. It started hurting bad yesterday. She has tried clove oil Orajel and Motrin 800 mg without relief. No fevers or chills. Allergies and Home Medications Allergies Coded Allergies: No Known Drug Allergies (Unverified , 09/23/18) Home Medications Amoxicillin 500 Mg Capsule, 500 MG PO TID Prescribed by: JESSICA HILL on 07/26/19 0550 Docusate Sodium 100 Mg Capsule, 100 MG PO BID Prescribed by: LAKHWINDER LACEY on 10/01/18 0732 Hydrocodone/Acetaminophen 1 Each Tablet, 1 EACH PO Q6H PRN for PAIN-MODERATE Prescribed by: JESSICA HILL on 07/26/19 0550 Ibuprofen 600 Mg Tablet, 800 MG PO Q6H PRN for PAIN-MILD Prescribed by: LAKHWINDER LACEY on 10/01/18 0732 Oxycodone HCl/Acetaminophen 1 Each Tablet, 1 TAB PO Q6H PRN for PAIN-MODERATE Prescribed by: LAKHWINDER LACEY on 10/01/18 0732 Vit/Fe Fumarate/Fa 1 Each Tablet, 1 EACH PO DAILY, (Reported) Patient Home Medication List Home Medication List Reviewed: Yes Review of Systems Review of Systems Constitutional: no symptoms reported Eyes: No Symptoms Reported Mouth: see HPI Respiratory: no symptoms reported Cardiovascular: no symptoms reported Skin: no symptoms reported Neurological: No Symptoms Reported All Other Systems Reviewed Negative Unless Noted: Yes Past Ozzmxrr-Jcgguj-Sramjm Hx Patient Social History Alcohol Use: Denies Use Recreational Drug Use: No Smoking Status: Current Everyday Smoker Recent Foreign Travel: No Contact w/Someone Who Travel: No Recent Infectious Disease Expo: No Recent Hopitalizations: No Physical Abuse: No Sexual Abuse: No Mistreated: No Immunizations Up To Date PED Vaccines UTD: Yes Seasonal Allergies Seasonal Allergies: No Past Medical History Respiratory: No Cardiac: No Neurological: No Genitourinary: No Gastrointestinal: No Musculoskeletal: No Endocrine: Yes HEENT: No Cancer: No Psychosocial: No Integumentary: No Blood Disorders: No Adverse Reaction/Blood Tranf: No Physical Exam Vital Signs Vital Signs - First Documented 07/26/19 05:32 Temp 36.0 Pulse 76 Resp 16 B/P (MAP) 147/92 (110) Pulse Ox 99 O2 Delivery Room Air Height, Weight, BMI Height: 5'2.00" Weight: 199lbs. 0.0oz. 90.008075li; 38.00 BMI Method:Stated General Appearance: WD/WN, mild distress Eyes: bilateral eye normal inspection, bilateral eye PERRL, bilateral eye EOMI Mouth/Throat: pharynx normal, dental tenderness (right lower second molar cracked and tender no abscess seen) Neck: supple Cardiovascular: regular rate, rhythm Respiratory: lungs clear Gastrointestinal: soft Neurologic/Psychiatric: alert, normal mood/affect Skin: normal color, warm/dry Progress/Results/Core Measures Results/Orders My Orders Orders - JESSICA HILL MD Amoxicillin Capsule (Polymox Capsule) (07/26/19 05:51) Tramadol Tablet (Ultram Tablet) (07/26/19 06:00) Vital Signs/I&O 07/26/19 05:32 Temp 36.0 Pulse 76 Resp 16 B/P (MAP) 147/92 (110) Pulse Ox 99 O2 Delivery Room Air Blood Pressure Mean: 110 Departure Impression Primary Impression: Pain, dental Disposition: 01 HOME, SELF-CARE Condition: Improved Departure-Patient Inst. Decision time for Depature: 05:49 Referrals: LAKHWINDER LACEY DO (PCP/Family) Primary Care Physician Patient Instructions: Dental Pain (DC) Add. Discharge Instructions: See dentist as soon as possible. use clove oil topically for pain. All discharge instructions reviewed with patient and/or family. Voiced understanding. Scripts Hydrocodone/Acetaminophen (Hydrocodon-Acetaminophn 10-325) 1 Each Tablet 1 EACH PO Q6H PRN for PAIN-MODERATE MDD 5, #10 TAB 0 Refills Prov: JESSICA HILL MD 07/26/19 Amoxicillin (Amoxicillin) 500 Mg Capsule 500 MG PO TID, #21 CAP 0 Refills Prov: JESSICA HILL MD 07/26/19 JESSICA HILL MD Jul 26, 2019 05:51
[2019-07-26 06:00] VITALS: BP 147/92
== END 2019-07-26 06:05 | disposition home or self-care (01) ==
LOC: EDUNIT# 05:27 → ER FS 05:29
DX: K08.89 Other specified disorders of teeth and supporting structures (principal); F17.200 Nicotine dependence, unspecified, uncomplicated
CPT/HCPCS: 99283

== ENCOUNTER 2020-05-05 07:51 | Emergency (ER) | payer BC ==
[~2020-05-05] VITALS: Ht 157.4 cm; Wt 96.8 kg
[~2020-05-05 07:51] MED LIST changes: +ACHYD1T PO; +AMOX500C2 PO
[2020-05-05 08:00] VITALS: BP 136/78
--- NOTE | 2020-05-05 08:17 | ED Lower Extremity ---
General Chief Complaint: Lower Extremity Stated Complaint: RT FOOT/ANKLE INJ History of Present Illness Date Seen by Provider: May 05, 2020 Time Seen by Provider: 08:01 Initial Comments 24-year-old female presents with right leg and ankle pain after twisting at this morning stepping out of her house. Feels pain in the mid leg as well as lower ankle and unable to bear weight. Denies history of fracture in either of these areas or any other pain or injury. Allergies and Home Medications Allergies Coded Allergies: No Known Drug Allergies (Unverified , 09/23/18) Home Medications Amoxicillin 500 Mg Capsule, 500 MG PO TID Prescribed by: JESSICA HILL on 07/26/19 0550 Docusate Sodium 100 Mg Capsule, 100 MG PO BID Prescribed by: LAKHWINDER LACEY on 10/01/18 0732 Hydrocodone Bit/Acetaminophen 1 Each Tablet, 1 EACH PO Q6H PRN for PAIN-MODERATE Prescribed by: JESSICA HILL on 07/26/19 0550 Ibuprofen 600 Mg Tablet, 800 MG PO Q6H PRN for PAIN-MILD Prescribed by: LAKHWINDER LACEY on 10/01/18 0732 Oxycodone HCl/Acetaminophen 1 Each Tablet, 1 TAB PO Q6H PRN for PAIN-MODERATE Prescribed by: LAKHWINDER LACEY on 10/01/18 0732 Vit/Fe Fumarate/Fa 1 Each Tablet, 1 EACH PO DAILY, (Reported) Patient Home Medication List Home Medication List Reviewed: Yes Review of Systems Constitutional: no symptoms reported Musculoskeletal: see HPI; No back pain; joint pain; No joint swelling, No neck pain Skin: No change in color, No lesions, No rash Psychiatric/Neurological: Denies Numbness, Denies Paresthesia, Denies Weakness Past Oliwyja-Thojjj-Iipman Hx Past Med/Social Hx: Reviewed Nursing Past Med/Soc Hx Patient Social History Alcohol Use: Denies Use Recreational Drug Use: No Smoking Status: Never a Smoker 2nd Hand Smoke Exposure: No Recent Foreign Travel: No Contact w/Someone Who Travel: No Recent Hopitalizations: No Physical Abuse: No Sexual Abuse: No Mistreated: No Fear: No Immunizations Up To Date PED Vaccines UTD: Yes Seasonal Allergies Seasonal Allergies: No Past Medical History Respiratory: No Cardiac: No Neurological: No Genitourinary: No Gastrointestinal: No Musculoskeletal: No Endocrine: Yes HEENT: No Cancer: No Psychosocial: No Integumentary: No Blood Disorders: No Adverse Reaction/Blood Tranf: No Physical Exam Vital Signs Vital Signs - First Documented 05/05/20 08:00 Temp 36.3 Pulse 98 Resp 16 B/P (MAP) 136/78 (97) Pulse Ox 99 O2 Delivery Room Air Capillary Refill : Height, Weight, BMI Height: 5'2.00" Weight: 199lbs. 0.0oz. 90.139097ot; 38.00 BMI Method:Stated General Appearance: WD/WN, no apparent distress Hips: bilateral hip non-tender, bilateral hip normal inspection, bilateral hip normal range of motion, bilateral hip no evidence of injury Legs: right leg normal inspection, right leg no evidence of injury, right leg bone tenderness, right leg limited range of motion, right leg pain, right leg soft tissue tenderness Knees: right knee non-tender, right knee normal inspection, right knee normal range of motion, right knee no evidence of injury Ankles: right ankle normal inspection, right ankle no evidence of injury, right ankle bone tenderness, right ankle pain, right ankle soft tissue tenderness, right ankle swelling (minimal lat ankle edema) Progress/Results/Core Measures Results/Orders My Orders Orders - KALE BRENNAN L DO Ankle 3 View Right (05/05/20 08:08) Tibia Fibula 2 View Right (05/05/20 08:08) Vital Signs/I&O 05/05/20 08:00 Temp 36.3 Pulse 98 Resp 16 B/P (MAP) 136/78 (97) Pulse Ox 99 O2 Delivery Room Air Departure Impression Primary Impression: Sprain and strain of ankle Disposition: 01 HOME, SELF-CARE Condition: Stable Departure-Patient Inst. Decision time for Depature: 08:29 Referrals: [facility] (PCP) Primary Care Physician WARREN BACON APRN (Family) Primary Care Physician Patient Instructions: Ankle Sprain (DC) Add. Discharge Instructions: Follow up with your PCP in 2 weeks, if not improving, sooner if worse. All discharge instructions reviewed with patient and/or family. Voiced understanding. Scripts Ibuprofen (Ibuprofen) 800 Mg Tablet 800 MG PO Q8H PRN for PAIN, #30 TAB 0 Refills Prov: BREANNESTINEKALE DO 05/05/20 ROBEANSTINEURSZULAKALE L DO May 05, 2020 08:17
[2020-05-05] MEDS ORDERED: IBUP-1780 PO (08:30)
--- NOTE | 2020-05-05 08:35 | Diagnostic Imaging Report ---
INDICATION: Twisted right ankle and right ankle pain. Time of exam: 8:14 AM 3 views of the right ankle were obtained. Ankle alignment is normal. Ankle mortise is well maintained. Talar dome is smooth. No fracture or dislocation is identified. IMPRESSION: No acute bony abnormality is detected. Dictated by: Dictated on workstation # [id number]
--- NOTE | 2020-05-05 08:35 | Diagnostic Imaging Report ---
INDICATION: Right leg injury and pain. Time of exam 8:16 AM AP and lateral views of the right tibia and fibula were obtained. Alignment at the knee and ankle is normal. Tibia and fibula appear intact. No fractures are seen. IMPRESSION: No acute bony abnormality is detected. Dictated by: Dictated on workstation # [id number]
== END 2020-05-05 08:38 | disposition home or self-care (01) ==
LOC: EDUNIT# 07:51 → ER FS 07:53
DX: S93.491A Sprain of other ligament of right ankle, initial encounter (principal); X50.1XXA Overexertion from prolonged static or awkward postures, initial encounter
CPT/HCPCS: 73590; 73610

== ENCOUNTER 2020-12-08 12:03 | Emergency (ER) | payer OTHER, BC ==
[~2020-12-08] VITALS: Ht 157.5 cm; Wt 118.8 kg
[~2020-12-08 12:03] MED LIST changes: +IBUP-1780 PO
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
[2020-12-08] MEDS: ONDANSETRON 4 MG/2 ML (SDV) Z0FRAN IVP ONE ×2 (13:06→15:14)
[2020-12-08] MEDS: NS IV 500 ML 500 ML IV SCH (13:06)
[2020-12-08 14:32] LABS: AMPHETAMINE SCREEN, URINE NEGATIVE (NEGATIVE); BARBITURATE SCREEN URINE NEGATIVE (NEGATIVE); BENZODIAZEPINES SCREEN URINE NEGATIVE (NEGATIVE); CANNABINOID SCREEN, URINE POSITIVE (NEGATIVE); COCAINE SCREEN URINE NEGATIVE (NEGATIVE); METHADONE STAT NEGATIVE (NEGATIVE); METHAMPHETAMINE SCREEN URINE S NEGATIVE (NEGATIVE); OPIATE SCREEN URINE NEGATIVE (NEGATIVE); OXYCODONE STAT NEGATIVE (NEGATIVE); PROPOXYPHENE STAT NEGATIVE (NEGATIVE); TRICYCLIC ANTIDEPRESSANTS SCRE NEGATIVE (NEGATIVE)
[2020-12-08 14:33] LABS: BACTERIA,URINE MODERATE /HPF; BILIRUBIN,URINE NEGATIVE (NEGATIVE); CLARITY,URINE SL CLOUDY; COLOR,URINE YELLOW; GLUCOSE, URINE (UA) NEGATIVE (NEGATIVE); KETONES,URINE NEGATIVE (NEGATIVE); LEUKOCYTE ESTERASE ,URINE TRACE (NEGATIVE); NITRITE,URINE NEGATIVE (NEGATIVE); PH,URINE 6.5 (5-9); PROTEIN,URINE NEGATIVE (NEGATIVE)
[2020-12-08 15:18] VITALS: BP 143/92
== END 2020-12-08 15:18 | disposition short-term general hospital (02) ==
LOC: EDUNIT# 12:03 → ER FS 12:05
DX: S06.0X0A Concussion without loss of consciousness, initial encounter (principal); S16.1XXA Strain of muscle, fascia and tendon at neck level, initial encounter; V89.2XXA Person injured in unspecified motor-vehicle accident, traffic, initial encounter
CPT/HCPCS: 36415; 70450; 72125; 80306; 81000; 99285; G0480; 80320

== ENCOUNTER 2023-03-05 10:34 | Emergency (ER) | payer BC ==
[~2023-03-05] VITALS: Ht 157 cm; Wt 89.0 kg
--- NOTE | 2023-03-05 10:38 | ED Respiratory ---
General Stated Complaint: SOB; WHEEZING History of Present Illness Date Seen by Provider: Mar 05, 2023 Time Seen by Provider: 10:37 Initial Comments 27-year-old female who is [id number] who is 20 weeks with PMH of Asthma and Tachycardia is here with c/o SOB and wheezing and tightness in her chest, which began today morning. Pt states she took multiple rounds of her inhaler but it didn't help so she came tot he ER. Pt is able to talk but is breathless and wheezing. Pt has been having a postnasal drip for the past 1 week which is triggering an occasional cough. Denies fever and chills, chest pain, palpitations, abdominal pain, diarrhea. Pt states she has tachycardia as baseline and her pulse is always over 105/ min and when she exercises it goes into the 180's. Pt states she has seen a trade manager as well and they did not prescribe her any medications for it. She reports she has had this issue for years and occurs even when she is not . Allergies and Home Medications Allergies Coded Allergies: No Known Drug Allergies (Unverified , 09/23/18) Patient Home Medication List Home Medication List Reviewed: Yes Amoxicillin (Amoxicillin) 500 Mg Capsule, 500 MG PO TID Prescribed by: JESSICA HILL on 07/26/19 0550 Docusate Sodium (Docusate Sodium) 100 Mg Capsule, 100 MG PO BID Prescribed by: LAKHWINDER LACEY on 10/01/18 0732 Hydrocodone Bit/Acetaminophen (HYDROcodone/APAP 10/325 TABLET) 1 Each Tablet, 1 EACH PO Q6H PRN for PAIN-MODERATE Prescribed by: JESSICA HILL on 07/26/19 0550 Ibuprofen (Ibu) 600 Mg Tablet, 800 MG PO Q6H PRN for PAIN-MILD Prescribed by: LAKHWINDER LACEY on 10/01/18 0732 Ibuprofen (Ibuprofen) 800 Mg Tablet, 800 MG PO Q8H PRN for PAIN Prescribed by: KALE BRENNAN on 05/05/20 0830 Oxycodone HCl/Acetaminophen (Percocet 5-325 mg Tablet) 1 Each Tablet, 1 TAB PO Q6H PRN for PAIN-MODERATE Prescribed by: LAKHWINDER LACEY on 10/01/18 0732 Vit/Fe Fumarate/Fa ( Vitamin Tablet) 1 Each Tablet, 1 EACH PO DAILY, (Reported) Entered as Reported by: KANWAL SHEFFIELD on 12/23/13 8058 Review of Systems Review of Systems Constitutional: no symptoms reported EENTM: no symptoms reported Respiratory: short of breath, wheezing Cardiovascular: no symptoms reported Gastrointestinal: no symptoms reported Genitourinary: no symptoms reported : Yes Musculoskeletal: no symptoms reported Skin: no symptoms reported Psychiatric/Neurological: No Symptoms Reported Hematologic/Lymphatic: No Symptoms Reported Past Akfylyu-[id number]-Ygmcgd Hx Immunizations Up To Date PED Vaccines UTD: Yes Seasonal Allergies Seasonal Allergies: No Past Medical History Respiratory: No Cardiac: No Neurological: No Genitourinary: No Gastrointestinal: No Musculoskeletal: No Endocrine: Yes HEENT: No Cancer: No Psychosocial: No Integumentary: No Blood Disorders: No Adverse Reaction/Blood Tranf: No Physical Exam Vital Signs - First Documented 03/05/23 10:45 Temp 35.6 Pulse 130 Resp 22 B/P (MAP) 133/95 (108) Pulse Ox 93 O2 Delivery Room Air Capillary Refill : Height: 5'2.00" Weight: 199lbs. 0.0oz. 90.381458lx; 47.00 BMI Method:Stated General Appearance: WD/WN, moderate distress, obese HEENT: PERRL/EOMI, normal ENT inspection, TMs normal, pharynx normal Neck: non-tender, full range of motion, supple Respiratory: chest non-tender, wheezing (Expiratory) Cardiovascular: tachycardia Gastrointestinal: normal bowel sounds, non tender, soft Extremities: normal range of motion Neurologic/Psychiatric: no motor/sensory deficits, alert, normal mood/affect, oriented x 3 Skin: normal color Progress/Results/Core Measures Suspected Sepsis SIRS Temperature: Pulse: Respiratory Rate: Laboratory Tests 03/05/23 11:17: White Blood Count 9.7 Blood Pressure / Mean: Laboratory Tests 03/05/23 11:17: Creatinine 0.49L, Platelet Count 153, Total Bilirubin 0.2 Results/Orders Lab Results Laboratory Tests Test 03/05/23 11:17 Range/Units White Blood Count 9.7 4.3-11.0 10^3/uL Red Blood Count 4.97 3.80-5.11 10^6/uL Hemoglobin 13.1 11.5-16.0 g/dL Hematocrit 40 35-52 % Mean Corpuscular Volume 80 80-99 fL Mean Corpuscular Hemoglobin 26 25-34 pg Mean Corpuscular Hemoglobin Concent 33 32-36 g/dL Red Cell Distribution Width 14.6 H 10.0-14.5 % Platelet Count 153 130-400 10^3/uL Mean Platelet Volume 13.0 H 9.0-12.2 fL Immature Granulocyte % (Auto) 1 % Neutrophils (%) (Auto) 63 42-75 % Lymphocytes (%) (Auto) 20 12-44 % Monocytes (%) (Auto) 5 0-12 % Eosinophils (%) (Auto) 11 H 0-10 % Basophils (%) (Auto) 1 0-10 % Neutrophils # (Auto) 6.2 1.8-7.8 10^3/uL Lymphocytes # (Auto) 1.9 1.0-4.0 10^3/uL Monocytes # (Auto) 0.5 0.0-1.0 10^3/uL Eosinophils # (Auto) 1.0 H 0.0-0.3 10^3/uL Basophils # (Auto) 0.1 0.0-0.1 10^3/uL Immature Granulocyte # (Auto) 0.1 0.0-0.1 10^3/uL Sodium Level 138 135-145 MMOL/L Potassium Level 3.4 L 3.6-5.0 MMOL/L Chloride Level 104 98-107 MMOL/L Carbon Dioxide Level 20 L 21-32 MMOL/L Anion Gap 14 5-14 MMOL/L Blood Urea Nitrogen 4 L 7-18 MG/DL Creatinine 0.49 L 0.60-1.30 MG/DL Estimat Glomerular Filtration Rate 131 BUN/Creatinine Ratio 8 Glucose Level 117 H 70-105 MG/DL Calcium Level 9.7 8.5-10.1 MG/DL Corrected Calcium 10.1 8.5-10.1 MG/DL Magnesium Level 1.8 1.6-2.4 MG/DL Total Bilirubin 0.2 0.1-1.0 MG/DL Aspartate Amino Transf (AST/SGOT) 10 5-34 U/L Alanine Aminotransferase (ALT/SGPT) 5 0-55 U/L Alkaline Phosphatase 72 40-136 U/L Total Protein 7.0 6.4-8.2 GM/DL Albumin 3.5 3.2-4.5 GM/DL Smear Scan YES My Orders Orders - JAQUELIN OHARA MD Ipratropium/Albuterol Inh Soln (Ipratrop (03/05/23 10:45) Svn Small Volume Nebulizer (03/05/23 10:38) Ipratropium/Albuterol Inh Soln (Ipratrop (03/05/23 10:45) Svn Small Volume Nebulizer (03/05/23 10:38) Cbc With Automated Diff (03/05/23 11:13) Comprehensive Metabolic Panel (03/05/23 11:13) Ed Iv/Invasive Line Start (03/05/23 11:15) Ns Iv 1000 Ml (Sodium Chloride 0.9%) (03/05/23 11:15) Ondansetron Injection (Zofran Injectio (03/05/23 11:15) Magnesium (03/05/23 11:18) Methylprednisolone Sod Succ (Methylpredn (03/05/23 11:59) Potassium Chloride (Tablet) (Potassium C (03/05/23 12:30) Ipratropium/Albuterol Inh Soln (Ipratrop (03/05/23 12:30) Svn Small Volume Nebulizer (03/05/23 12:20) Medications Given in ED Current Medications Medications Dose Ordered Sig/Miguel Route Start Time Stop Time Status Last Admin Dose Admin Albuterol/ Ipratropium 3 ml ONCE ONCE INH 03/05/23 10:45 03/05/23 10:46 DC 03/05/23 10:43 3 ML Albuterol/ Ipratropium 3 ml ONCE ONCE INH 03/05/23 10:45 03/05/23 11:04 DC 03/05/23 11:22 3 ML Albuterol/ Ipratropium 3 ml ONCE ONCE INH 03/05/23 12:30 03/05/23 12:31 DC 03/05/23 12:26 3 ML Ondansetron HCl 4 mg ONCE ONCE IVP 03/05/23 11:15 03/05/23 11:17 DC 03/05/23 11:21 4 MG Potassium Chloride 40 meq ONCE ONCE PO 03/05/23 12:30 03/05/23 12:31 DC 03/05/23 12:34 40 MEQ Vital Signs/I&O 03/05/23 10:45 Temp 35.6 Pulse 130 Resp 22 B/P (MAP) 133/95 (108) Pulse Ox 93 O2 Delivery Room Air Capillary Refill : Progress Note : Progress Note 1. ACUTE ASTHMA EXACERBATION IN : - Duo Neb treatments x4: After 1st treatment there is a significant improvement in the lung exam and pt is able to talk without getting extremely breathless. After 4th treatment., lungs clear - Pt began to feel nauseous and light headed after getting first breathing treatment, started NS IVF and gave Zofran 4mg iv - Discussed with pt about giving Solumedrol iv, and Pt called her OB office in [place], who told her it was fine to get solumedrol in the ER, but pt is refusing it. She does not want it at this time. UPDATE: Later in the visit, pt changed her mind and agreed to the Solumedrol 125mg iv. - CBC: unremarkable - Follow up with PCP/ OB within the next 2 to 3 days. -Prescription given for refills of albuterol nebulizer solution and albuterol inhaler. -The patient was seen in the ED, and treated appropriately to presentation at a specific point in time. Patient is informed that there is a possibility that disease and illness can evolve and change in acuity rapidly or slowly after patient is discharged from the ER. Precautionary advice given to the patient for immediate return to ER if symptoms worsen or do not resolve, and to seek emergency care sooner rather than later. Pt also advised on the importance of PCP follow up and compliance with management and follow up plan with PCP and/or specialist, as this is part of the management plan. Pt verbally expressed understanding. The patient was seen in the ED, and treated appropriately to presentation at a specific point in time. Patient is informed that there is a possibility that disease and illness can evolve and change in acuity rapidly or slowly after patient is discharged from the ER. Precautionary advice given to the patient for immediate return to ER if symptoms worsen or do not resolve, and to seek emergency care sooner rather than later. Pt also advised on the importance of PCP follow up and compliance with management and follow up plan with PCP and/or specialist, as this is part of the management plan. Pt verbally expressed understanding. 2. BORDERLINE HYPOKALEMIA: - CMP: s.K is 134 - Oral potassium 40mEq given as a one time dose in the ER. Departure Impression Primary Impression: Acute asthma exacerbation Qualified Codes: J45.901 - Unspecified asthma with (acute) exacerbation Additional Impressions: Asthma during Hypokalemia Disposition: 01 HOME, SELF-CARE Condition: Improved Departure-Patient Inst. Referrals: WARREN BACON APRN (PCP) Primary Care Physician [facility] (Family) Primary Care Physician Patient Instructions: Asthma and , Hypokalemia (DC), How to Use a Nebulizer ED, Asthma Action Plan ED Add. Discharge Instructions: - Follow up with PCP/ OB within the next 2 to 3 days. -Prescription given for refills of albuterol nebulizer solution and albuterol inhaler. Scripts Albuterol Sulfate (VENTOLIN HFA) 1 Puff Puff 2 PUFF INH Q4H for Shortness of Breath for 30 Days, #1 EA 1 PUFF = 90 MCG Prov: JAQUELIN OHARA MD 03/05/23 Albuterol Sulfate (Albuterol Sulfate) 2.5 Mg/3 Ml (0.083 %) Vial.neb 2.5 MG INH Q20M for Wheezing for 30 Days, #30 EA Neb treatment recommended whrn inhaler is not helping, and it is to be taken every 20 minutes , for 3 doses. After 3 doses, if still SOB, please go to the nearest ER for further treatment. Prov: JAQUELIN OHARA MD 03/05/23 JAQUELIN OHARA MD Mar 05, 2023 10:38
[2023-03-05 10:45] VITALS: BP 133/95
[2023-03-05] MEDS ORDERED: RT-Ipratropium/Albuterol NEB 3 ML VIAL INH ONE ×4 (10:45→13:15)
[2023-03-05] MEDS ORDERED: NS IV 1000 ML 1,000 ML IV SCH (11:15)
[2023-03-05] MEDS ORDERED: ONDANSETRON 4 MG/2 ML (SDV) Z0FRAN IVP ONE (11:15)
[2023-03-05 11:34] LABS: BASOPHILS # (AUTO) 0.1 10^3/uL (0.0-0.1); BASOPHILS % (AUTO) 1 % (0-10); EOSINOPHILS % (AUTO) 11 % (0-10); HEMATOCRIT 40 % (35-52); HEMOGLOBIN 13.1 g/dL (11.5-16.0); LYMPHOCYTES # (AUTO) 1.9 10^3/uL (1.0-4.0); LYMPHOCYTES % (AUTO) 20 % (12-44); MEAN CORPUSCULAR HEMOGLOBIN 26 pg (25-34); MEAN CORPUSCULAR HGB CONC 33 g/dL (32-36); MEAN CORPUSCULAR VOLUME 80 fL (80-99); MONOCYTES # (AUTO) 0.5 10^3/uL (0.0-1.0); MONOCYTES % (AUTO) 5 % (0-12); NEUTROPHILS # (AUTO) 6.2 10^3/uL (1.8-7.8); NEUTROPHILS % (AUTO) 63 % (42-75); PLATELET COUNT 153 10^3/uL (130-400); WHITE BLOOD COUNT 9.7 10^3/uL (4.3-11.0)
[2023-03-05 11:48] LABS: POTASSIUM 3.4 MMOL/L (3.6-5.0)
[2023-03-05 11:49] LABS: ALBUMIN 3.5 GM/DL (3.2-4.5); BILIRUBIN,TOTAL 0.2 MG/DL (0.1-1.0); CALCIUM 9.7 MG/DL (8.5-10.1); CREATININE SERUM 0.49 MG/DL (0.60-1.30); MAGNESIUM 1.8 MG/DL (1.6-2.4)
[2023-03-05] MEDS ORDERED: methylPREDNISolone INJ 125 MG VIAL IV STA (11:59)
[2023-03-05 12:06] LABS: SMEAR SCAN COMMENT YES
[2023-03-05] MEDS ORDERED: POTASSIUM CHLORIDE 20 MEQ TABLET PO ONE (12:30)
[2023-03-05] MEDS ORDERED: RT-ALBUINH INH (13:09)
[2023-03-05] MEDS ORDERED: ALBU2.5V4 INH (13:09)
== END 2023-03-05 13:20 | disposition home or self-care (01) ==
LOC: EDUNIT# 10:34 → ER FS 10:35
DX: O99.512 Diseases of the respiratory system complicating pregnancy, second trimester (principal); O99.282 Endocrine, nutritional and metabolic diseases complicating pregnancy, second trimester; O99.212 Obesity complicating pregnancy, second trimester; J45.901 Unspecified asthma with (acute) exacerbation; E87.6 Hypokalemia; R00.0 Tachycardia, unspecified; Z3A.20 20 weeks gestation of pregnancy
CPT/HCPCS: 36415; 80053; 83735; 85025

== ENCOUNTER 2023-03-12 16:13 | Emergency (ER) | payer BC ==
[~2023-03-12] VITALS: Ht 157 cm; Wt 87.0 kg
[~2023-03-12 16:13] MED LIST changes: +ALBU2.5V4 INH; +RT-ALBUINH INH
[2023-03-12] MEDS ORDERED: RT-Ipratropium/Albuterol NEB 3 ML VIAL INH STA (16:21)
[2023-03-12] MEDS ORDERED: dexAMETHasone INJ 10 MG/ML 1 ML VIAL IM STA (16:21)
[2023-03-12 16:26] VITALS: BP 136/77
--- NOTE | 2023-03-12 16:40 | ED Dyspnea ---
General Chief Complaint: Respiratory Problems Stated Complaint: SOB FOR 3 WEEKS Source of Information: Patient, Old Records (ED visit from 03/05/2023 for same complaint), RN/MD (Call to Dr. Hieu Pratt, director of marketing, for the patient) History of Present Illness Date Seen by Provider: Mar 12, 2023 Time Seen by Provider: 16:16 Initial Comments 27-year-old female presenting by private vehicle to the emergency department with complaints postnasal drip and shortness of breath. She has approximately 20 weeks and she is G 5 P4 with 4 live births. She reports using 3 breathing treatments prior to coming to the emergency department. She had seen her OB doctor and states that they told her to take Benadryl for the postnasal drip. She was continuing to feel like she was having a lot of drainage and getting short of breath and winded from that. She appears very anxious and agitated on arrival to the ED. Her initial heart rate was 160 with O2 saturation of 96 to 97%. Initial blood pressure was elevated but also taken while she was moving and would not sit still for the blood pressure cuff so it read high at 131/116. She denies having fever, chills, chest pain but does complain of chest tightness and wheezing. She was seen in the emergency department here on March 05 and had blood work that did not show any specific source for her wheezing and asthma. She did receive a single Solu-Medrol dose of 125 mg IV at that visit. She denies having any vaginal bleeding or discharge. She is insisting that we contact her OB doctor Dr. Pratt in [facility]. Timing/Duration: Waxing and Waning (over 3 weeks) Severity: Severe Activities at Onset: None Prior Episodes/Possible Cause: Frequent Episodes Modifying Factors: Worse With Activity; Improves With Albuterol Inhaler, Improves With Albuterol Nebulizer; Worse With Coughing Associated Symptoms: Anxiety, Cough, Wheezing Allergies and Home Medications Allergies Coded Allergies: No Known Drug Allergies (Unverified , 09/23/18) Patient Home Medication List Home Medication List Reviewed: Yes Albuterol Sulfate (Albuterol Sulfate) 2.5 Mg/3 Ml (0.083 %) Vial.neb, 2.5 MG INH Q20M Prescribed by: JAQUELIN OHARA MD on 03/05/23 1309 Albuterol Sulfate (Ventolin Hfa) 1 Puff Puff, 2 PUFF INH Q4H Prescribed by: JAQUELIN OHARA MD on 03/05/23 1309 Amoxicillin (Amoxicillin) 500 Mg Capsule, 500 MG PO TID Prescribed by: JESSICA HILL on 07/26/19 0550 Docusate Sodium (Docusate Sodium) 100 Mg Capsule, 100 MG PO BID Prescribed by: LAKHWINDER LACEY on 10/01/18 0732 Guaifenesin (Mucinex) 1,200 Mg Tab.er.12h, 1,200 MG PO Q12H Prescribed by: BECK BOLES on 03/12/23 1726 Hydrocodone Bit/Acetaminophen (HYDROcodone/APAP 10/325 TABLET) 1 Each Tablet, 1 EACH PO Q6H PRN for PAIN-MODERATE Prescribed by: JESSICA HILL on 07/26/19 0550 Ibuprofen (Ibu) 600 Mg Tablet, 800 MG PO Q6H PRN for PAIN-MILD Prescribed by: LAKHWINDER LACEY on 10/01/18 0732 Ibuprofen (Ibuprofen) 800 Mg Tablet, 800 MG PO Q8H PRN for PAIN Prescribed by: KALE BRENNAN on 05/05/20 0830 Oxycodone HCl/Acetaminophen (Percocet 5-325 mg Tablet) 1 Each Tablet, 1 TAB PO Q6H PRN for PAIN-MODERATE Prescribed by: LAKHWINDER LACEY on 10/01/18 0732 Vit/Fe Fumarate/Fa ( Vitamin Tablet) 1 Each Tablet, 1 EACH PO DAILY, (Reported) Entered as Reported by: KANWAL SHEFFIELD on 12/23/13 1718 Review of Systems Review of Systems Constitutional: No chills, No fever EENTM: nose congestion; No epistaxis Respiratory: cough; No phlegm; short of breath; No stridor; wheezing Cardiovascular: palpitations Gastrointestinal: no symptoms reported Genitourinary: no symptoms reported Musculoskeletal: no symptoms reported Skin: no symptoms reported Psychiatric/Neurological: Anxiety Past Mbhdwxh-Mlatnf-Pqdbps Hx Patient Social History Tobacco Use?: No Use of E-Cig and/or Vaping dev: No Substance use?: No Alcohol Use?: No Immunizations Up To Date PED Vaccines UTD: Yes Seasonal Allergies Seasonal Allergies: No Past Medical History Surgery/Hospitalization HX: Asthma Respiratory: No Cardiac: No Neurological: No Genitourinary: No Gastrointestinal: No Musculoskeletal: No Endocrine: Yes HEENT: No Cancer: No Psychosocial: No Integumentary: No Blood Disorders: No Adverse Reaction/Blood Tranf: No Physical Exam Vital Signs Vital Signs - First Documented 03/12/23 16:26 Temp 36.6 Pulse 166 Resp 28 B/P (MAP) 136/77 (96) Pulse Ox 96 O2 Delivery Room Air Capillary Refill : Height, Weight, BMI Height: 5'2.00" Weight: 199lbs. 0.0oz. 90.820555mh; 36.00 BMI Method:Stated General Appearance: Anxious, Moderate Distress HEENT: PERRL/EOMI, Pharynx Normal Respiratory: Chest Non Tender, Accessory Muscle Use, Decreased Breath Sounds, Wheezing Cardiovascular: Normal Peripheral Pulses, Tachycardia Gastrointestinal: Normal Bowel Sounds, No Pulsatile Mass, Non Tender, Soft Extremity: Normal Capillary Refill, Normal Inspection, No Pedal Edema Neurologic/Psychiatric: Alert, Oriented x3, Other (anxious) Skin: Normal Color, Warm/Dry Progress/Results/Core Measures Results/Orders My Orders Orders - BECK BOLES MD Ipratropium/Albuterol Inh Soln (Ipratrop (03/12/23 16:21) Dexamethasone Injection (Dexamethasone (03/12/23 16:21) Svn Small Volume Nebulizer (03/12/23 16:21) Heart Tones (03/12/23 16:41) Vital Signs/I&O 03/12/23 16:26 Temp 36.6 Pulse 166 Resp 28 B/P (MAP) 136/77 (96) Pulse Ox 96 O2 Delivery Room Air Progress Progress Note #1: Progress Note Potential diagnosis of asthma exacerbation, anxiety, respiratory infection. Ordered a DuoNeb breathing treatment as well as a IM injection of Decadron 10 mg IM x1. Obtain heart tones once her heart rate has improved since she came in at 160 it might be difficult to tell the difference between her heart rate and the infants. Since she just had blood work done on March 05 will defer repeating that. As she was insisting that we speak with her OB doctor I will try and page Dr. Pratt. 1635 Dr. Pratt, patient's director of marketing doctor called back. I reviewed with him the patient's presentation and her concern about her breathing. She does have some wheezing so there does appear to be an asthma component but she also seems to be very anxious and working herself up in addition to the breathing. He was agreeable to having the patient get a budesonide or Solu-Medrol inhaler so that she had a inhaled steroid to try and help. He also was agreeable to to having her use Mucinex and saline nasal spray as well as possibly trying a Esther pot to help with her congestion and nasal drip. He advised that if her anxiety seem to be a major component with her breathing today that a single dose of Ativan or anxiolytic here in the ED would be okay as well. While speaking with Dr. Pratt the patient's heart rate did improve down into the 130s as she was getting her breathing treatment. Progress Note #2: Progress Note On recheck of the patient she was moving better air and less wheezing after the breathing treatment. She admits that she did get herself worked up and anxious when she felt like she could not breathe. She has calmed down a lot now and is breathing easier. Her blood pressure improved to 116/88. She has a steroid inhaler at home of Pulmicort Flexhaler. She states that she does have difficulty trying to use the Flexhaler so we will provide an additional handout about trying to use the inhaler. Also she does not have a spacer to use with her albuterol inhaler so we will send a spacer with her so that she can try and get more the albuterol medicine into her lungs and less coating her tongue and throat. Reviewed the recommendations from her OB doctor who is taking the Mucinex and using a saline nasal spray [id number] as well as trying the Esther pot or sinus rinse. Patient states that she has an appointment this week to see her OB doctor and plans to review things at that time as well. Departure Impression Primary Impression: Acute asthma exacerbation Qualified Codes: J45.41 - Moderate persistent asthma with (acute) exacerbation Additional Impressions: Incidental Post-nasal drainage Disposition: 01 HOME, SELF-CARE Condition: Improved Departure-Patient Inst. Decision time for Depature: 17:24 Referrals: WARREN BACON APRN (PCP) Primary Care Physician [facility]/[place] (Family) Primary Care Physician Patient Instructions: Asthma, Adult ED, How to Use a Metered Dose Inhaler ED, How to Use a Spacer Add. Discharge Instructions: Dr. Pratt recommended using Plain Mucinex (Guaifenesin) to help thin out drainage and help it to stop draining so much. He also advised you could use an over the counter nasal Saline spray to help with congestion and drainage. You could try doing a nasal saline rinse such as NetiPot to help rinse your sinuses and get the drainage to stop. The steroid shot from today, Dexamethasone, was 10 mg and should also help to get the congestion and drainage to dry up. Use the spacer with your inhaler to help get more of the medicine into your lungs and less coating your tongue and throat. Keep using your Pulmicort Flex Haler. This has a steroid that you inhale and will help with your breathing and asthma. Keep your follow up with Dr. Pratt. Try to avoid being in the heat. The extreme heat will make it harder for you to breath as well as being is taking up more space in your abdomen and limits how well you can breath and how deep you can breath. All discharge instructions reviewed with patient and/or family. Voiced understanding. Scripts Guaifenesin (Mucinex) 1,200 Mg Tab.er.12h 1200 MG PO Q12H for Nasal Drainage for 7 Days, #14 TAB 0 Refills Prov: BECK BOLES MD 03/12/23 BECK BOLES MD Mar 12, 2023 16:39
[2023-03-12] MEDS ORDERED: GUAI120013 PO (17:26)
== END 2023-03-12 17:35 | disposition home or self-care (01) ==
LOC: EDUNIT# 16:13 → ER FS 16:15
DX: O99.512 Diseases of the respiratory system complicating pregnancy, second trimester (principal); J45.901 Unspecified asthma with (acute) exacerbation; R09.82 Postnasal drip; Z3A.20 20 weeks gestation of pregnancy

== ENCOUNTER 2023-04-01 09:04 | Emergency (ER) | payer BC ==
[~2023-04-01] VITALS: Ht 157 cm; Wt 88.0 kg
[~2023-04-01 09:04] MED LIST changes: +GUAI120013 PO
[2023-04-01] MEDS ORDERED: LACTATED RINGERS 1,000 ML 1,000 ML IV STA (09:09)
--- NOTE | 2023-04-01 09:09 | ED Respiratory ---
General Chief Complaint: Respiratory Problems Stated Complaint: SOB History of Present Illness Date Seen by Provider: Apr 01, 2023 Time Seen by Provider: 09:06 Initial Comments Patient presents with shortness of breath. Patient has chronic asthma. She reports that is been going on and off since 3 weeks ago when she was seen for an asthma exacerbation. Patient was concerned about a possible blood clot because she has pain in her right calf. Patient is approximately 22 weeks . She denies any fevers chills. Allergies and Home Medications Allergies Coded Allergies: No Known Drug Allergies (Unverified , 09/23/18) Patient Home Medication List Home Medication List Reviewed: Yes Albuterol Sulfate (Albuterol Sulfate) 2.5 Mg/3 Ml (0.083 %) Vial.neb, 2.5 MG INH Q20M Prescribed by: JAQUELIN OHARA MD on 03/05/23 1309 Albuterol Sulfate (Ventolin Hfa) 1 Puff Puff, 2 PUFF INH Q4H Prescribed by: JAQUELIN OHARA MD on 03/05/23 1309 Albuterol Sulfate (Ventolin Hfa) 90 Mcg Hfa.aer.ad, 18 GM INH Q6H PRN for WHEEZING Prescribed by: SUSY SANTOS on 04/01/23 1132 Amoxicillin (Amoxicillin) 500 Mg Capsule, 500 MG PO TID Prescribed by: JESSICA HILL on 07/26/19 0550 Docusate Sodium (Docusate Sodium) 100 Mg Capsule, 100 MG PO BID Prescribed by: LAKHWINDER LACEY on 10/01/18 0732 Guaifenesin (Mucinex) 1,200 Mg Tab.er.12h, 1,200 MG PO Q12H Prescribed by: BECK BOLES on 03/12/23 1726 Hydrocodone Bit/Acetaminophen (HYDROcodone/APAP 10/325 TABLET) 1 Each Tablet, 1 EACH PO Q6H PRN for PAIN-MODERATE Prescribed by: JESSICA HILL on 07/26/19 0550 Ibuprofen (Ibu) 600 Mg Tablet, 800 MG PO Q6H PRN for PAIN-MILD Prescribed by: LAKHWINDER LACEY on 10/01/18 0732 Ibuprofen (Ibuprofen) 800 Mg Tablet, 800 MG PO Q8H PRN for PAIN Prescribed by: KALE BRENNAN on 05/05/20 0830 Oxycodone HCl/Acetaminophen (Percocet 5-325 mg Tablet) 1 Each Tablet, 1 TAB PO Q6H PRN for PAIN-MODERATE Prescribed by: LAKHWINDER LACEY on 10/01/18 0732 Prednisone (Prednisone) 20 Mg Tab, 40 MG PO DAILY Prescribed by: SUSY SANTOS on 04/01/23 1132 Vit/Fe Fumarate/Fa ( Vitamin Tablet) 1 Each Tablet, 1 EACH PO DAILY, (Reported) Entered as Reported by: KANWAL SHEFFIELD on 12/23/13 1718 Review of Systems Review of Systems Constitutional: see HPI Respiratory: see HPI Cardiovascular: no symptoms reported Gastrointestinal: no symptoms reported Genitourinary: no symptoms reported Musculoskeletal: see HPI Skin: no symptoms reported Psychiatric/Neurological: No Symptoms Reported Past [id number] Hx Immunizations Up To Date PED Vaccines UTD: Yes Seasonal Allergies Seasonal Allergies: No Past Medical History Surgery/Hospitalization HX: Asthma Respiratory: No Cardiac: No Neurological: No Genitourinary: No Gastrointestinal: No Musculoskeletal: No Endocrine: Yes HEENT: No Cancer: No Psychosocial: No Integumentary: No Blood Disorders: No Adverse Reaction/Blood Tranf: No Physical Exam Vital Signs - First Documented 04/01/23 09:08 Temp 36.7 Pulse 140 Resp 22 B/P (MAP) 120/50 (73) Pulse Ox 95 O2 Delivery Room Air Capillary Refill : Height: 5'2.00" Weight: 199lbs. 0.0oz. 90.589363vl; 35.00 BMI Method:Stated General Appearance: WD/WN, no apparent distress Neck: full range of motion, supple Respiratory: no respiratory distress, no accessory muscle use, wheezing (Mild, diffuse) Cardiovascular: normal peripheral pulses, tachycardia Extremities: normal range of motion, other (Mild calf tenderness ) Neurologic/Psychiatric: alert, oriented x 3, other (Extremely anxious) Skin: normal color, warm/dry Progress/Results/Core Measures Suspected Sepsis SIRS Temperature: Pulse: Respiratory Rate: Laboratory Tests 04/01/23 09:10: White Blood Count 9.8 Blood Pressure / Mean: Laboratory Tests 04/01/23 09:10: Creatinine 0.51L, Platelet Count 144, Total Bilirubin 0.2 Results/Orders Lab Results Laboratory Tests Test 04/01/23 09:10 Range/Units White Blood Count 9.8 4.3-11.0 10^3/uL Red Blood Count 4.43 3.80-5.11 10^6/uL Hemoglobin 11.8 11.5-16.0 g/dL Hematocrit 37 35-52 % Mean Corpuscular Volume 83 80-99 fL Mean Corpuscular Hemoglobin 27 25-34 pg Mean Corpuscular Hemoglobin Concent 32 32-36 g/dL Red Cell Distribution Width 14.4 10.0-14.5 % Platelet Count 144 130-400 10^3/uL Mean Platelet Volume 12.6 H 9.0-12.2 fL Immature Granulocyte % (Auto) 1 % Neutrophils (%) (Auto) 71 42-75 % Lymphocytes (%) (Auto) 18 12-44 % Monocytes (%) (Auto) 4 0-12 % Eosinophils (%) (Auto) 6 0-10 % Basophils (%) (Auto) 0 0-10 % Neutrophils # (Auto) 7.0 1.8-7.8 10^3/uL Lymphocytes # (Auto) 1.7 1.0-4.0 10^3/uL Monocytes # (Auto) 0.4 0.0-1.0 10^3/uL Eosinophils # (Auto) 0.6 H 0.0-0.3 10^3/uL Basophils # (Auto) 0.0 0.0-0.1 10^3/uL Immature Granulocyte # (Auto) 0.1 0.0-0.1 10^3/uL D-Dimer 0.65 H 0.00-0.49 UG/ML Sodium Level 139 135-145 MMOL/L Potassium Level 3.7 3.6-5.0 MMOL/L Chloride Level 104 98-107 MMOL/L Carbon Dioxide Level 22 21-32 MMOL/L Anion Gap 13 5-14 MMOL/L Blood Urea Nitrogen 4 L 7-18 MG/DL Creatinine 0.51 L 0.60-1.30 MG/DL Estimat Glomerular Filtration Rate 130 BUN/Creatinine Ratio 8 Glucose Level 137 H 70-105 MG/DL Calcium Level 9.3 8.5-10.1 MG/DL Corrected Calcium 9.8 8.5-10.1 MG/DL Magnesium Level 1.9 1.6-2.4 MG/DL Total Bilirubin 0.2 0.1-1.0 MG/DL Aspartate Amino Transf (AST/SGOT) 11 5-34 U/L Alanine Aminotransferase (ALT/SGPT) 7 0-55 U/L Alkaline Phosphatase 73 40-136 U/L Total Protein 6.7 6.4-8.2 GM/DL Albumin 3.4 3.2-4.5 GM/DL My Orders Orders - SUSY SANTOS DO Cbc With Automated Diff (04/01/23 09:09) Comprehensive Metabolic Panel (04/01/23 09:09) Magnesium (04/01/23 09:09) Lactated Ringers 1,000 Ml (Lactated Ring (04/01/23 09:09) Ipratropium/Albuterol Inh Soln (Ipratrop (04/01/23 09:15) Svn Small Volume Nebulizer (04/01/23 09:09) Fibrin Degradation Products (04/01/23 09:09) Magnesium 1 Gm/100 Ml Ivpb (Magnesium 1 (04/01/23 09:15) Ondansetron Injection (Ondansetron Inj (04/01/23 10:45) Medications Given in ED Vital Signs/I&O 04/01/23 04/01/23 09:08 11:26 Temp 36.7 36.7 Pulse 140 94 Resp 22 16 B/P (MAP) 120/50 (73) 115/62 Pulse Ox 95 95 O2 Delivery Room Air Room Air Capillary Refill : Progress Note : Progress Note Patient's shortness of breath is probably as much anxiety as it is asthma. Patient's vital signs were appropriate throughout her stay. She does have some mild wheezing. She was treated with a DuoNeb IV fluids and mag due to her recurrence of her asthma. I will send her home with a prednisone for a couple days for her asthma. Patient's diagnostic studies were ordered reviewed and interpreted by me. Patient has a negative D-dimer which is extremely low especially when adjusted for her and so it is very unlikely that she has a DVT. Patient was offered transfer to. If she was concern for an ultrasound but she declined. Patient also declined COVID testing. She is stable and discharged home. Departure Impression Primary Impression: Acute asthma exacerbation Qualified Codes: J45.31 - Mild persistent asthma with (acute) exacerbation Additional Impression: 22 weeks gestation of Disposition: HOME, SELF-CARE Condition: Stable Departure-Patient Inst. Referrals: WARREN BACON APRN (PCP) Primary Care Physician [facility] (Family) Primary Care Physician Patient Instructions: Asthma and , Asthma Action Plan Add. Discharge Instructions: Follow-up with your primary care provider in 2 to 3 days All discharge instructions reviewed with patient and/or family. Voiced understanding. Scripts Albuterol Sulfate (Ventolin Hfa) 90 Mcg Hfa.aer.ad 18 GM INH Q6H PRN for WHEEZING, #1 EACH Prov: SUSY SANTOS DO 04/01/23 Prednisone (Prednisone) 20 Mg Tab 40 MG PO DAILY, #6 TAB 0 Refills Prov: SUSY SANTOS DO 04/01/23 SUSY SANTOS DO Apr 01, 2023 09:09
[2023-04-01] MEDS ORDERED: RT-Ipratropium/Albuterol NEB 3 ML VIAL INH ONE (09:15)
[2023-04-01 09:19] LABS: BASOPHILS % (AUTO) 0 % (0-10); EOSINOPHILS # (AUTO) 0.6 10^3/uL (0.0-0.3); EOSINOPHILS % (AUTO) 6 % (0-10); HEMATOCRIT 37 % (35-52); HEMOGLOBIN 11.8 g/dL (11.5-16.0); LYMPHOCYTES # (AUTO) 1.7 10^3/uL (1.0-4.0); LYMPHOCYTES % (AUTO) 18 % (12-44); MEAN CORPUSCULAR HEMOGLOBIN 27 pg (25-34); MEAN CORPUSCULAR HGB CONC 32 g/dL (32-36); MEAN CORPUSCULAR VOLUME 83 fL (80-99); MEAN PLATELET VOLUME 12.6 fL (9.0-12.2); MONOCYTES # (AUTO) 0.4 10^3/uL (0.0-1.0); MONOCYTES % (AUTO) 4 % (0-12); NEUTROPHILS % (AUTO) 71 % (42-75); PLATELET COUNT 144 10^3/uL (130-400); WHITE BLOOD COUNT 9.8 10^3/uL (4.3-11.0)
[2023-04-01] MEDS: MAGNESIUM 1 GM/100 ML IVPB 100 ML IV SCH ×2 (09:21→10:26)
[2023-04-01 09:42] LABS: CREATININE SERUM 0.51 MG/DL (0.60-1.30); POTASSIUM 3.7 MMOL/L (3.6-5.0)
[2023-04-01 09:43] LABS: ALBUMIN 3.4 GM/DL (3.2-4.5); BILIRUBIN,TOTAL 0.2 MG/DL (0.1-1.0); CALCIUM 9.3 MG/DL (8.5-10.1); MAGNESIUM 1.9 MG/DL (1.6-2.4); TOTAL PROTEIN 6.7 GM/DL (6.4-8.2)
[2023-04-01] MEDS ORDERED: ONDANSETRON INJECTION 4 MG/2 ML (SDV) IVP ONE (10:45)
[2023-04-01 11:26] VITALS: BP 115/62
[2023-04-01] MEDS ORDERED: ALBU18HF2 INH (11:32)
[2023-04-01] MEDS ORDERED: PRD20T PO (11:32)
== END 2023-04-01 11:36 | disposition home or self-care (01) ==
LOC: EDUNIT# 09:04 → ER FS 09:05
DX: O99.512 Diseases of the respiratory system complicating pregnancy, second trimester (principal); O26.892 Other specified pregnancy related conditions, second trimester; J45.901 Unspecified asthma with (acute) exacerbation; M79.661 Pain in right lower leg; Z28.310 Unvaccinated for COVID-19; Z3A.22 22 weeks gestation of pregnancy
CPT/HCPCS: 36415; 80053; 83735; 85025; 85379; 94640

== ENCOUNTER 2023-06-04 09:06 | Emergency (ER) | payer BC ==
[~2023-06-04 09:06] MED LIST changes: +ALBU18HF2 INH; +PRD20T PO
[2023-06-04] MEDS ORDERED: dexAMETHasone INJ 10 MG/ML 1 ML VIAL IM ONE (09:15)
[2023-06-04] MEDS ORDERED: RT-Ipratropium/Albuterol NEB 3 ML VIAL INH ONE (09:15)
--- NOTE | 2023-06-04 09:33 | ED Respiratory ---
General Chief Complaint: Respiratory Problems Stated Complaint: ASTHMA ATTACK; SOB Nursing Triage Note: PT HAS HX OF ASTHMA AND ARRIVES TO ED SHORT OF BREATH AND WHEEZING. SHE CAN ONLY TALK IN SHORT SENTENCES. Source: patient, old records Exam Limitations: no limitations History of Present Illness Date Seen by Provider: Jun 04, 2023 Time Seen by Provider: 09:08 Initial Comments 27-year-old female with past medical history of asthma coming in due to concerns for an asthma exacerbation. She was fine this morning, dropped her child off at school, and immediately felt short of breath shortly afterwards. Denies any chest pain, abdominal pain, nausea, vomiting, diarrhea, fever, chills, weakness, numbness, or any other concerns. She is as well. She is supposed to follow-up with a oriental rug stretcher and has an appointment set. She does use an inhaled steroid daily, but her dog chewed up her rescue inhaler. Allergies and Home Medications Allergies Coded Allergies: No Known Drug Allergies (Unverified , 09/23/18) Patient Home Medication List Home Medication List Reviewed: Yes Albuterol Sulfate (Albuterol Sulfate) 2.5 Mg/3 Ml (0.083 %) Vial.neb, 2.5 MG INH Q20M Prescribed by: JAQUELIN OHARA MD on 03/05/23 1309 Albuterol Sulfate (Ventolin Hfa) 1 Puff Puff, 2 PUFF INH Q4H Prescribed by: JAQUELIN OHARA MD on 03/05/23 1309 Albuterol Sulfate (Ventolin Hfa) 90 Mcg Hfa.aer.ad, 18 GM INH Q6H PRN for WHEEZ ING Prescribed by: SUSY SANTOS on 04/01/23 1132 Albuterol Sulfate (Ventolin Hfa) 90 Mcg Hfa.aer.ad, 1 PUFF INH Q4H PRN for WHEEZING Prescribed by: NURIS OSMAN on 06/04/23 0938 Amoxicillin (Amoxicillin) 500 Mg Capsule, 500 MG PO TID Prescribed by: JESSICA HILL on 07/26/19 0550 Docusate Sodium (Docusate Sodium) 100 Mg Capsule, 100 MG PO BID Prescribed by: LAKHWINDER LACEY on 10/01/18 0732 Guaifenesin (Mucinex) 1,200 Mg Tab.er.12h, 1,200 MG PO Q12H Prescribed by: BECK BOLES on 03/12/23 1726 Hydrocodone Bit/Acetaminophen (HYDROcodone/APAP 10/325 TABLET) 1 Each Tablet, 1 EACH PO Q6H PRN for PAIN-MODERATE Prescribed by: JESSICA HILL on 07/26/19 0550 Ibuprofen (Ibu) 600 Mg Tablet, 800 MG PO Q6H PRN for PAIN-MILD Prescribed by: LAKHWINDER LACEY on 10/01/18 0732 Ibuprofen (Ibuprofen) 800 Mg Tablet, 800 MG PO Q8H PRN for PAIN Prescribed by: KALE BRENNAN on 05/05/20 0830 Oxycodone HCl/Acetaminophen (Percocet 5-325 mg Tablet) 1 Each Tablet, 1 TAB PO Q6H PRN for PAIN-MODERATE Prescribed by: LAKHWINDER LACEY on 10/01/18 0732 Prednisone (Prednisone) 20 Mg Tab, 40 MG PO DAILY Prescribed by: SUSY SANTOS on 04/01/23 1132 Prednisone (Prednisone) 20 Mg Tab, 40 MG PO DAILY Prescribed by: NURIS OSMAN on 06/04/23 0938 Vit/Fe Fumarate/Fa ( Vitamin Tablet) 1 Each Tablet, 1 EACH PO DAILY, (Reported) Entered as Reported by: KANWAL SHEFFIELD on 12/23/13 1718 Review of Systems Review of Systems Constitutional: No fever EENTM: no symptoms reported Respiratory: see HPI Cardiovascular: no symptoms reported Gastrointestinal: no symptoms reported Genitourinary: no symptoms reported Musculoskeletal: no symptoms reported Skin: no symptoms reported Psychiatric/Neurological: No Symptoms Reported Hematologic/Lymphatic: No Symptoms Reported Past Kvbvbpq-Crrjwb-Axfjqr Hx Patient Social History Tobacco Use?: No Use of E-Cig and/or Vaping dev: No Substance use?: No Pt feels they are or have been: No Immunizations Up To Date PED Vaccines UTD: Yes Seasonal Allergies Seasonal Allergies: No Past Medical History Surgery/Hospitalization HX: Asthma Respiratory: No Cardiac: No Neurological: No Genitourinary: No Gastrointestinal: No Musculoskeletal: No Endocrine: Yes HEENT: No Cancer: No Psychosocial: No Integumentary: No Blood Disorders: No Adverse Reaction/Blood Tranf: No Physical Exam Vital Signs - First Documented 06/04/23 09:06 Temp 36.9 Pulse 123 Resp 22 B/P (MAP) 142/116 (125) Pulse Ox 96 O2 Delivery Room Air Capillary Refill : Less Than 3 Seconds Height: 5'2.00" Weight: 199lbs. 0.0oz. 90.963686hh; 35.00 BMI Method:Stated General Appearance: WD/WN, moderate distress Eyes: Bilateral Eye Normal Inspection HEENT: PERRL/EOMI, normal ENT inspection, pharynx normal Neck: non-tender, full range of motion, supple, normal inspection Respiratory: chest non-tender, respiratory distress, accessory muscle use, wheezing Cardiovascular: no edema, no murmur, tachycardia Gastrointestinal: normal bowel sounds, non tender, soft; No distended, No guarding Extremities: normal range of motion, non-tender, normal inspection, no pedal edema, no calf tenderness, normal capillary refill Neurologic/Psychiatric: no motor/sensory deficits, alert, normal mood/affect Skin: normal color, warm/dry Progress/Results/Core Measures Suspected Sepsis SIRS Temperature: Pulse: 123 Respiratory Rate: 22 Blood Pressure 142 /116 Mean: 125 Results/Orders My Orders Orders - NURIS OSMAN MD Ipratropium/Albuterol Inh Soln (Ipratrop (06/04/23 09:15) Dexamethasone Injection (Dexamethasone (06/04/23 09:15) Medications Given in ED Current Medications Medications Dose Ordered Sig/Miguel Route Start Time Stop Time Status Last Admin Dose Admin Albuterol/ Ipratropium 6 ml ONCE ONCE INH 06/04/23 09:15 06/04/23 09:16 DC 06/04/23 09:17 6 ML Dexamethasone Sodium Phosphate 8 mg ONCE ONCE IM 06/04/23 09:15 06/04/23 09:16 DC 06/04/23 09:17 8 MG Vital Signs/I&O 06/04/23 06/04/23 09:06 09:37 Temp 36.9 36.9 Pulse 123 102 Resp 22 16 B/P (MAP) 142/116 (125) 132/84 Pulse Ox 96 98 O2 Delivery Room Air Room Air Capillary Refill : Less Than 3 Seconds Blood Pressure Mean: 125 Progress Note : Progress Note 27-year-old female coming in due to wheezing with concerns for an asthma exacerbation. The patient was tachypneic, wheezing, but had normal oxygenation on arrival. She was only speaking in short sentences. She was given an immediate DuoNeb x2. Had immediate relief almost within 60 seconds of the DuoNeb. It turns out that her dog chewed through her albuterol, she has not had her rescue inhaler. She was also given IM Decadron. Patient immediately feeling and looking back to baseline after the Decadron, and she was asking if she could leave. I discussed that we would be willing to monitor her for some time to be sure that she does not worsen again. She states that she would like to be discharged. Prescription sent for the albuterol as well as steroids. She has an appointment with the oriental rug stretcher beginning of June. Departure Impression Primary Impression: Acute asthma exacerbation Qualified Codes: J45.41 - Moderate persistent asthma with (acute) exacerbation Disposition: HOME, SELF-CARE Condition: Improved Departure-Patient Inst. Decision time for Depature: 09:40 Referrals: WARREN BACON APRN (PCP) Primary Care Physician [facility]/[place] (Family) Primary Care Physician Patient Instructions: Asthma, Adult ED Add. Discharge Instructions: Please follow-up with the oriental rug stretcher as you stated. A new prescription for t he albuterol was sent to your pharmacy with a refill as well as well as a steroid which you can start taking tomorrow since she received already today. Scripts Albuterol Sulfate (Ventolin Hfa) 90 Mcg Hfa.aer.ad 1 PUFF INH Q4H PRN for WHEEZING for 30 Days, #1 UNIT 1 Refill 1 PUFF = 90 MCG Prov: NURIS OSMAN MD 06/04/23 Prednisone (Prednisone) 20 Mg Tab 40 MG PO DAILY for 4 Days, #8 TAB 0 Refills Prov: NURIS OSMAN MD 06/04/23 Work/School Note: Work Release Form Date Seen in the Emergency Department: Jun 04, 2023 Return to Work: Jun 05, 2023 Restrictions: No Restrictions NURIS OSMAN MD Jun 04, 2023 09:32
[2023-06-04 09:37] VITALS: BP 132/84
[2023-06-04] MEDS ORDERED: PRD20T PO (09:38)
[2023-06-04] MEDS ORDERED: ALBU8.5H6 INH (09:38)
== END 2023-06-04 09:50 | disposition home or self-care (01) ==
LOC: EDUNIT# 09:06 → ER FS 09:07
DX: J45.901 Unspecified asthma with (acute) exacerbation (principal); Z79.51 Long term (current) use of inhaled steroids
CPT/HCPCS: 94640; 96372